=== PATIENT | female | born 2000 | race Caucasian/White ===

== ENCOUNTER 2021-05-27 17:34 | Emergency (ER) | payer OTHER, SELFPAY ==
[2021-05-27 18:20] VITALS: BP 123/84; PULSE 103; RESP 21; TEMP 37.1; O2SAT 99; BMI 15.2
--- NOTE | 2021-05-27 18:50 | HMH.EDUTC ---
[facility] [place] Clinical Impression: Acute bronchitis Qualifiers: Bronchitis organism: unspecified organism Qualified Code(s): J20.9 - Acute bronchitis, unspecified Disposition: Home, Self-Care Condition on Discharge: Good Instructions: Acute Bronchitis, DI for Acute Bronchitis Additional Instructions: Drink plenty of fluids. Take tylenol or ibuprofen for pain or fever. Take the medications as directed. Follow up with your regular doctor. GO TO THE ER FOR ANY WORSENING SYMPTOMS Quarantine until you know the results of your covid-19 test. If it is positive, the health department should call you and give you further instructions about your length of Quarantine and other thing. Prescriptions: Albuterol Sulfate [Albuterol Sulfate Hfa] 2 puffs IH Q6HP PRN 30 Days #1 hfa.aer.ad PRN Reason: Shortness Of Breath Transmission Status: Received by [facility]/pharmacy #[id number] Brompheniramine/Pseudoephed/Dm [Bromfed Dm Cough Syrup] 5 ml PO Q6HP PRN #240 syrup PRN Reason: Cough Transmission Status: Received by [facility]/pharmacy #[id number] predniSONE [Prednisone 20mg Tab] 20 mg PO BID 4 Days #8 tab Transmission Status: Received by [facility]/pharmacy #[id number] Azithromycin [Z-Gerardo 250mg Tab*] 250 mg PO UD DOSE PK #6 tab Transmission Status: Received by [facility]/pharmacy #[id number] Referrals: Conrad Chavez [Primary Care Provider] - Forms: Work/School Release Time of Disposition: 18:52 Medical Decision Making - Medical Records Medical records reviewed: No: I reviewed the patient's medical records. - Loki Inquiry Pt receiving controlled substance: No Vital Signs: 05/27/21 18:20 05/27/21 18:53 Temperature 98.7 F 98.7 F Temperature Source Oral Pulse Rate 103 H Pulse Rate [Left Brachial] 103 H Respiratory Rate 21 21 Blood Pressure 123/84 Blood Pressure [Left Arm] 123/84 Blood Pressure Mean [Left Arm] 97 Blood Pressure Source [Left Arm] Automatic Cuff Blood Pressure Position [Left Arm] Sitting 02 Sat by Pulse Oximetry 99 Oxygen Delivery Method Room Air Orders (Tests/Meds): ORDERS Category Date Time Status Covid-19 Nasal PCR ([facility]) Routine Lab 05/27/21 18:54 [place] [facility] [place] - General Stated complaint: cough runny nose congestion sob diarrhea Time Seen by Provider: 05/27/21 18:40 Mode of Arrival: Ambulatory Source of Information: Patient Limitations: No Limitations Description of Symptoms (Recalled from Triage Doc. by RN): PATIENT C/O RUNNY NOSE WITH GREEN DRAINAGE, COUGH, BODY ACHES, CONGESTION X 2 WEEKS HEENT Symptoms (Recalled from RN notes): Yes Resp Symptoms (Recalled from RN notes): Yes Skin Symptoms (Recalled from RN notes): No MS Symptoms (Recalled from RN notes): No Functional Status (Recalled from RN notes): WNL - History of Present Illness Provider Complaint: she c/o cough and congestion for the past 2 weeks. She denies fever. She usually gets bronchitis this time of the year. She denies any covid exposure. - Related Data Home Medications Medication Instructions Recorded Confirmed Buspirone HCl [Buspar 10mg 10 mg PO BID 05/27/21 05/27/21 tablet] Medroxyprogesterone Acetate 1 ml IM ONCE 05/27/21 05/27/21 Previous Rx's Medication Instructions Recorded Albuterol Sulfate [Albuterol 2 puffs IH Q6HP PRN 30 Days #1 05/27/21 Sulfate Hfa] hfa.aer.ad Azithromycin [Z-Gerardo 250mg Tab*] 250 mg PO UD DOSE PK #6 tab 05/27/21 Brompheniramine/Pseudoephed/Dm 5 ml PO Q6HP PRN #240 syrup 05/27/21 [Bromfed Dm Cough Syrup] predniSONE [Prednisone 20mg 20 mg PO BID 4 Days #8 tab 05/27/21 Tab] Allergies Allergy/AdvReac Type Severity Reaction Status Date / Time No Known Allergies Allergy Verified 05/27/21 18:22 - Worker's Comp Is this a Worker's Comp case?: No H History - Hepatitis A Screen Drug use history?: No High risk sexual behaviors?: No History of sexually transmitted infection?: No Currently employed?: No Childcare worker?: No Do you have indoor plum
[2021-05-27 18:53] VITALS: BP 123/84; PULSE 103; RESP 21; TEMP 37.1; O2SAT 99
== END 2021-05-27 18:58 | disposition home or self-care (01) ==
PROVIDERS: Emergency Provider Nurse Practitioner Family; PCP Pediatrics
DX: J20.9 Acute bronchitis, unspecified (principal); Z20.822 Contact with and (suspected) exposure to COVID-19; F17.210 Nicotine dependence, cigarettes, uncomplicated
CPT/HCPCS: 99202; G0463; U0003

== ENCOUNTER 2021-06-02 19:26 | Emergency (ER) | payer OTHER, SELFPAY ==
[2021-06-02 21:12] VITALS: BP 124/75; PULSE 75; RESP 18; TEMP 36.8; O2SAT 98; BMI 15.6
--- NOTE | 2021-06-02 21:17 | HMH.EDGENADL ---
ED Disposition Clinical Impression: Pleurisy Disposition: Left Against Medical Advice Condition on Discharge: Good Instructions: DI for Pleurisy Additional Instructions: please return or see pcp for follow up Referrals: Kenton Chavez MD [Primary Care Provider] - - Critical Care Critical Care Time: No Attestation: On 06/02/21, the high probability of a clinically significant, sudden or life threatening deterioration of the following system(s) required my full and direct attention, intervention and personal management. The time I documented below is in addition to time spent performing reported procedures but includes the following listed in this critical care notation. Medical Decision Making - Medical Records Medical records reviewed: Yes: I reviewed the patient's medical records. - Loki Inquiry Pt receiving controlled substance: No Vital Signs: 06/02/21 21:12 Temperature 98.2 F Temperature Source Oral Pulse Rate [Right Brachial] 75 Respiratory Rate 18 Blood Pressure [Right Arm] 124/75 Blood Pressure Mean [Right Arm] 91 Blood Pressure Source [Right Arm] Automatic Cuff Blood Pressure Position [Right Arm] Sitting 02 Sat by Pulse Oximetry 98 Oxygen Delivery Method Room Air - Lab Data Lab results reviewed: Yes: I reviewed the patient's lab results. Lab Results 06/02/21 21:28: WBC 14.4 H, RBC 5.10, Hgb 15.2, Hct 44.6, MCV 87.6, MCH 29.9, MCHC 34.1, RDW 13.2, Plt Count 499 H, MPV 7.5, Neut % (Auto) 63.7, Lymph % (Auto) 30.2, [place] % (Auto) 4.5, Eos % (Auto) 1.3, Baso % (Auto) 0.3, Neut # (Auto) 9.1 H, Lymph # (Auto) 4.3, [place] # (Auto) 0.6, Eos # (Auto) 0.2, Baso # (Auto) 0.1 06/02/21 21:28: Sodium 141, Potassium 4.2, Chloride 103, Carbon Dioxide 27, Anion Gap 15.2 H, BUN 11, Creatinine 0.60, Estimated Creat Clear 84, Estimated GFR 124, Est GFR ( Amer) 150, Glucose 93, Calcium 9.6, Total Bilirubin 0.4, AST 26, ALT 30, Alkaline Phosphatase 58, C-Reactive Protein 5.5 H, Total Protein 8.6 H, Albumin 4.9, Globulin 3.7 H, Albumin/Globulin Ratio 1.3 Result diagrams: 06/02/21 21:28 06/02/21 21:28 Orders (Tests/Meds): ORDERS Category Date Time Status CTA Chest [CT angio chest PE protocol] Stat Cat Scan 06/02/21 21:19 Ordered XR ribs RT min 3V w [id number] Stat Exams 06/02/21 21:16 Ordered C-Reactive Protein Stat Lab 06/02/21 21:28 Results Complete Blood Count Auto Diff Stat Lab 06/02/21 21:28 Results Comprehensive Metabolic Panel Stat Lab 06/02/21 21:28 Results ESR [Erythrocyte Sedimentation Rate] Stat Lab 06/02/21 21:28 Results HCG Qualitative, Serum Stat Lab 06/02/21 21:28 Received Lactic Acid Stat Lab 06/02/21 21:58 Received Procalcitonin Stat Lab 06/02/21 21:28 Results Rapid PCR Covid and Flu A/B Stat Lab 06/02/21 21:18 Ordered Blood Culture Stat Micro 06/02/21 21:58 Received Medical Decision Narrative: pleuritic pain after infection and will need ct - chest and covid-19 testing General Adult HPI - General Chief complaint: PAIN Stated complaint: cough, pain/stinging in ribs when coughing Time Seen by Provider: 06/02/21 21:15 Mode of Arrival: Family Vehicle Source of Information: Patient, Medical Record Limitations: No Limitations Description of Symptoms (Recalled from ER Triage Doc. by RN): right side rib pain following upper resp infection; pain with inspiration and coughing - History of Present Illness HPI narrative: pt with recent rt chest pain with pain with inspiration - no hemoptysis and no fever or rash and no trauma - was seen and treated with abx and steroids Onset (ago): day(s) Location: chest Severity: moderate Associated symptoms: cough - Related Data Home Medications Medication Instructions Recorded Confirmed Buspirone HCl [Buspar 10mg 10 mg PO BID 05/27/21 05/27/21 tablet] Medroxyprogesterone Acetate 1 ml IM ONCE 05/27/21 05/27/21 Previous Rx's Medication Instructions Recorded Albuterol Sulfate [Albuterol 2 puffs IH Q6HP IA
[2021-06-02 21:37] LABS: Basophils # 0.1 K/mm3 (0-0.2); Basophils % 0.3 % (0.1-2.0); Eosinophils # 0.2 K/mm3 (0.0-0.4); Eosinophils % 1.3 % (0.1-12.0); Hematocrit 44.6 % (37.0-47.0); Hemoglobin 15.2 g/dL (12.2-16.2); Lymphocytes # 4.3 K/mm3 (0.7-4.5); Lymphocytes % 30.2 % (10-50); Mean Corpuscular HGB Conc 34.1 g/dL (31.8-35.4); Mean Corpuscular Hemoglobin 29.9 pg (27.0-31.2); Mean Corpuscular Volume 87.6 fl (81-99); Mean Platelet Volume 7.5 fl (7.4-10.4); Monocytes # 0.6 K/mm3 (0.1-1.0); Monocytes % 4.5 % (1.7-9.3); Neutrophils # 9.1 K/mm3 (1.8-7.8); Neutrophils % 63.7 % (37.0-80.0); Platelet Count 499 K/mm3 (142-424); Red Cell Distribution Width 13.2 % (11.5-17.5); White Blood Count 14.4 K/mm3 (4.8-10.8)
[2021-06-02 21:49] LABS: Alanine Aminotransferase 30 U/L (12-78); Albumin Level 4.9 g/dl (3.5-5.0); Albumin/Globulin Ratio 1.3 (1.1-1.8); Alkaline Phosphatase 58 U/L (38-126); Anion Gap 15.2 mEq/L (5-15); Aspartate Amino Transferase 26 U/L (14-36); Bilirubin,Total 0.4 mg/dl (0.2-1.3); Blood Urea Nitrogen 11 mg/dl (7-17); Calcium 9.6 mg/dl (8.4-10.2); Carbon Dioxide 27 mmol/L (22.0-30.0); Chloride 103 mmol/L (98-107); Creatinine Clearance Estimated 84 mL/min (50-200); Estimated Glomerular Filt Rate 124 ml/min (>60); GFR (African American) 150 ML/MIN (>60); Globulin 3.7 g/dL (1.3-3.2); Glucose 93 mg/dl (74-100); Potassium 4.2 mmoL/L (3.5-5.1); Sodium 141 mmol/L (136-145); Total Protein,Serum 8.6 g/dl (6.3-8.2)
[2021-06-02 21:55] LABS: C-Reactive Protein 5.5 mg/L (0-4)
[2021-06-02 22:08] LABS: Procalcitonin 0.054 ng/mL (0.0-2.0)
[2021-06-02 22:18] LABS: Lactic Acid 0.8 mmol/L (0.7-2.1)
[2021-06-02 22:24] VITALS: BP 121/75; PULSE 78; RESP 18; TEMP 36.8; O2SAT 98
[2021-06-02 22:33] LABS: Erythrocyte Sedimentation Rate 21 mm/hr (0-20)
[2021-06-02 22:54] LABS: HCG Qualitative, Serum Negative (Negative)
== END 2021-06-02 22:25 | disposition left against medical advice (07) ==
PROVIDERS: Emergency Provider Emergency Medicine; PCP Family Medicine
DX: R09.1 Pleurisy (principal); F17.210 Nicotine dependence, cigarettes, uncomplicated
CPT/HCPCS: 80053; 83605; 84145; 84703; 85025; 85651; 86140; 87040; 99282

== ENCOUNTER 2022-03-14 08:36 | Emergency (ER) | payer OTHER, SELFPAY ==
[2022-03-14 08:37] VITALS: BP 107/68; PULSE 101; RESP 16; TEMP 37.1; O2SAT 99; BMI 16.4
--- NOTE | 2022-03-14 08:43 | PC.NURSE ---
LUCIA Ronquillo at BS
[2022-03-14 08:47] VITALS: BP 107/68; PULSE 136; O2SAT 97
--- NOTE | 2022-03-14 08:53 | HMH.EDGENADL ---
ED Disposition Clinical Impression: COVID-19 virus infection Disposition: Home, Self-Care Condition on Discharge: Good Instructions: DI for COVID-19 (Suspected or Confirmed ) Additional Instructions: Rest, drink plenty of fluids. Tylenol or Ibuprofen for fever and/or aches and pains. Monitor your symptoms. IF YOU HAVE AN EMERGENCY WARNING SIGN (INCLUDING TROUBLE BREATHING), SEEK EMERGENCY MEDICAL CARE IMMEDIATELY. COVID-19 Isolation: People with COVID-19 should isolate for 5 days. Then if they are asymptomatic (no symptoms) or their symptoms are resolving (without fever for 24 hours), follow that by 5 days of wearing a mask when around others to minimize the risk of infecting people you encounter. If you test positive for COVID-19 and never develop symptoms, day 0 is the day of your positive viral test (based on the date you were tested) and day 1 is the first full day after your positive test. If you develop symptoms after testing positive, your 5-day isolation period must start over. Day 0 is your first day of symptoms. Day 1 is the first full day after your symptoms developed. What to do: Stay in a separate room from other household members, if possible. Use a separate bathroom, if possible. Avoid contact with other members of the household and pets. Don?t share personal household items, like cups, towels, and utensils. Wear a mask when around other people if able. Referrals: Conrad Chavez [Primary Care Provider] - - Critical Care Critical Care Time: No Attestation: On 03/14/22, the high probability of a clinically significant, sudden or life threatening deterioration of the following system(s) required my full and direct attention, intervention and personal management. The time I documented below is in addition to time spent performing reported procedures but includes the following listed in this critical care notation. Medical Decision Making - Loki Inquiry Pt receiving controlled substance: No Vital Signs: 03/14/22 08:37 Temperature 98.7 F Temperature Source Oral Pulse Rate [Right Radial] 101 H Respiratory Rate 16 Blood Pressure [Right Arm] 107/68 L Blood Pressure Mean [Right Arm] 81 Blood Pressure Source [Right Arm] Automatic Cuff Blood Pressure Position [Right Arm] Sitting 02 Sat by Pulse Oximetry 99 Oxygen Delivery Method Room Air - Lab Data Lab Results 03/14/22 09:02: SARS-CoV-2 (PCR) Detected A, Influenza A Untype (PCR) Not detected, Influenza Type B (PCR) Not detected Medical Decision Narrative: Mother agreeable with COVID/flu testing. Does not want child tested unless she is positive. General Adult HPI - General Stated complaint: fever Time Seen by Provider: 03/14/22 08:53 - History of Present Illness HPI narrative: Patient and her child are both being seen. They both have been sick for 4 days with vomiting, diarrhea, and fever. Patient also has diffuse body aches. She was seen by her primary care provider yesterday and diagnosed with a viral gastroenteritis. Prescribed Zofran. No testing done. She says that she wants to know if there is anything she can take for the body aches. She says that she cannot take any pain medications except for Tylenol and ibuprofen due to weak stomach lining. Denies URI symptoms. Denies urinary symptoms. No recent travel or antibiotics. No blood in stool. No known exposure to any illnesses. She has not been vaccinated against COVID. - Related Data Home Medications Medication Instructions Recorded Confirmed Buspirone HCl [Buspar 10mg 10 mg PO BID 05/27/21 05/27/21 tablet] Medroxyprogesterone Acetate 1 ml IM ONCE 05/27/21 05/27/21 Previous Rx's Medication Instructions Recorded Albuterol Sulfate [Albuterol 2 puffs IH Q6HP PRN 30 Days #1 05/27/21 Sulfate Hfa] hfa.aer.ad Azithromycin [Z-Gerardo 250mg Tab*] 250 mg PO UD DOSE PK #6 tab 05/27/21 Brompheniramine/Pseudoephed/Dm 5 ml PO Q6HP PRN #240 syrup
--- NOTE | 2022-03-14 08:54 | PC.NURSE ---
ED MD at
[2022-03-14 09:09] LABS: Influenza A, PCR Not Detected (NotDetected); Influenza B, PCR Not Detected (NotDetected)
[2022-03-14 09:59] LABS: Coronavirus 19, PCR Detected (NotDetected)
--- NOTE | 2022-03-14 10:04 | PC.NURSE ---
ED MD at speaking with patient
--- NOTE | 2022-03-14 10:26 | PC.NURSE ---
Vera, RN at discussing discharge instructions
[2022-03-14 10:30] VITALS: BP 107/68; PULSE 136; RESP 14; TEMP 37.1; O2SAT 97
== END 2022-03-14 10:35 | disposition home or self-care (01) ==
PROVIDERS: Emergency Provider Emergency Medicine; PCP Pediatrics
DX: U07.1 COVID-19 (principal); F17.210 Nicotine dependence, cigarettes, uncomplicated
CPT/HCPCS: 99282; C9803; U0003; U0005

== ENCOUNTER 2023-08-26 11:20 | Emergency (ER) | payer OTHER, SELFPAY ==
[2023-08-26 11:23] VITALS: BP 122/75; PULSE 105; RESP 18; TEMP 36.7; O2SAT 100; BMI 15.8
--- NOTE | 2023-08-26 12:05 | HMH.EDGENADL ---
Discharge Plan Disposition Patient Disposition: Home, Self-Care Chief Complaint: Abdominal Pain Prescriptions Prescriptions: No Action albuterol sulfate 8.5 GM HFA aerosol inhaler 2 puffs IH Q6HP PRN (Reason: Shortness Of Breath) 30 Days Qty: 1 5RF Referrals Follow up/Referrals: Conrad Chavez [Primary Care Provider] - See instructions Activity Restrictions/Add. Instructions Additional Instructions/Restrictions: At this time it was felt you are safe to be discharged home. If new or worsening symptoms please do not hesitate to return the emergency department. You have follow-up with Dr. Tipton on 16 at 3:15 PM, please attend this appointment. Clinical Impressions Clinical Impression: Abdominal pain, Instructions Patient Instructions: DI for Acute Abdominal Pain Discharge ED Provider: Matthew Guillen General Adult HPI General Chief complaint: Abdominal Pain Stated complaint: stomach pain, 9 weeks Time Seen by Provider: 08/26/23 11:40 Mode of Arrival: Family Vehicle Source of Information: Patient Limitations: No Limitations Description of Symptoms (Recalled from ER Triage Doc. by RN): Pt is apporx 9 wk and presents with c/o of RLQ ABD cramping . Denies any blood or conerning vaginal d/c. Denies fever, chills, or n/v/d. She is . States she typically have pre-eclampsia with her pregnancies and she is a -Rh factor blood. She follows Inna HARRISON with Dr. Sanon's office. She has not had an u/s yet. History of Present Illness HPI narrative: Patient is a G3, P1 EGA 9 weeks who presents to the emergency department for evaluation of right lower quadrant abdominal pain and cramping. Onset was acute. She has associated vomiting over the last few days. No dysuria, no vaginal discharge, no vaginal bleeding. has not been identified on ultrasound previously. Related Data Previous Rx's Medication Instructions Recorded albuterol sulfate 90 mcg/actuation 2 puffs IH Q6HP PRN Shortness Of 05/27/21 aerosol inhaler Breath 30 days ##1 Allergies Allergy/AdvReac Type Severity Reaction Status Date / Time No Known Allergies Allergy Verified 05/27/21 18:22 [facility] Disclaimer: The information contained in this section may have been updated after the patient was seen, as this information can be updated by other users. Social History Smoking Status: Current every day smoker tobacco type: cigarettes packs per day: 1 second hand exposure: No alcohol intake: never current occupational status: other Travel in the last 8 weeks: None ROS Obtained: Yes Systems reviewed as appropriate & no additional complaints except as documented Physical Exam General General appearance: alert and in no apparent distress Head Head exam: atraumatic and normocephalic Eye Eye exam: Present PERRL and EOMI ENT ENT exam: Present mucous membranes moist Neck Neck exam: Present normal inspection Chest Chest inspection: Present normal inspection and symmetric chest wall rise Respiratory Respiratory exam: Present normal lung sounds bilaterally; Absent respiratory distress Cardiovascular Cardiovascular exam: Present regular rate and normal rhythm Abdominal Exam Abdominal exam: Present soft; Absent tenderness Extremities Exam Extremities exam: Present normal inspection Neurological Exam Neurological exam: Present alert Psychiatric Psychiatric exam: Present normal affect Skin Skin exam: Present warm and dry Medical Decision Making Loki Inquiry Pt receiving controlled substance: No Vital Signs: 08/26/23 11:23 Temperature 98.0 F Temperature Source Oral Pulse Rate [Right] 105 H Respiratory Rate 18 Blood Pressure [Right Arm] 122/75 Blood Pressure Mean [Right Arm] 90 Blood Pressure Source [Right Arm] Automatic Cuff 02 Sat by Pulse Oximetry 100 Oxygen Delivery Method Room Air Lab Data Lab Results 08/26/23 11:32: Urine Color Yellow, Urine Appearance C
[2023-08-26 12:10] LABS: Microscopic, Urine URINE MICROSCOPIC (MICROSCOPIC)
[2023-08-26 12:12] LABS: Basophils % 0.2 % (0.1-2.0); Eosinophils # 0.1 K/mm3 (0.0-0.4); Eosinophils % 1.1 % (0.1-12.0); Hematocrit 41.7 % (37.0-47.0); Hemoglobin 14.7 g/dL (12.2-16.2); Lymphocytes # 2.2 K/mm3 (0.7-4.5); Lymphocytes % 21.5 % (10-50); Mean Corpuscular HGB Conc 35.2 g/dL (31.8-35.4); Mean Corpuscular Hemoglobin 32.9 pg (27.0-31.2); Mean Corpuscular Volume 93.4 fl (81-99); Mean Platelet Volume 8.4 fl (7.4-10.4); Monocytes # 0.6 K/mm3 (0.1-1.0); Monocytes % 5.6 % (1.7-9.3); Neutrophils # 7.4 K/mm3 (1.8-7.8); Neutrophils % 71.5 % (37.0-80.0); Platelet Count 314 K/mm3 (142-424); Red Blood Count 4.46 M/mm3 (4.20-5.40); Red Cell Distribution Width 12.8 % (11.5-17.5); White Blood Count 10.3 K/mm3 (4.8-10.8)
[2023-08-26 12:17] LABS: Appearance,Urine CLEAR (Clear); Bilirubin,Urine Negative (Negative); Blood, Urine Negative (Negative); Color,Urine YELLOW (Yellow); Glucose,Urine (UA) Negative (Negative); Ketones,Urine Negative (Negative); Leukocyte Esterase,Urine Negative (Negative); Nitrate,Urine Negative (Negative); Protein,Urine Negative (Negative); Urobilinogen,Urine 0.2 EU/dl (0.2)
[2023-08-26 12:18] LABS: Alanine Aminotransferase 29 U/L (12-78); Albumin/Globulin Ratio 1.5 (1.1-1.8); Alkaline Phosphatase 40 U/L (38-126); Anion Gap 15.6 mEq/L (5-15); Aspartate Amino Transferase 34 U/L (14-36); Bilirubin,Total 0.4 mg/dl (0.2-1.3); Blood Urea Nitrogen 6 mg/dl (7-17); Calcium 9.5 mg/dl (8.4-10.2); Carbon Dioxide 24 mmol/L (22.0-30.0); Chloride 103 mmol/L (98-107); Creatinine Clearance Estimated 83 mL/min (50-200); Estimated Glomerular Filt Rate 122 ml/min (>60); GFR (African American) 147 ML/MIN (>60); Globulin 3.3 g/dL (1.3-3.2); Glucose 86 mg/dl (74-100); Magnesium 2.1 mg/dl (1.6-2.3); Potassium 3.6 mmoL/L (3.5-5.1); Sodium 139 mmol/L (136-145); Total Protein,Serum 8.3 g/dl (6.3-8.2)
[2023-08-26 12:23] LABS: C-Reactive Protein 0.5 mg/L (0-4)
[2023-08-26 13:10] LABS: HCG,Quantitative 19928 mIU/ml (0-5.42)
--- NOTE | 2023-08-26 13:12 | US_ITS ---
PROCEDURE INFORMATION: Exam: US , Transvaginal and US Duplex Artery and Vein, Ovaries, Complete Exam date and time: 08/26/2023 1:20 PM Age: 23 years old Clinical indication: Other: Rlq pain; Gestational age or lmp: 06/19/2023; ; Additional info: Preg location LABS AND CLINICAL REPORTS: Last menstrual period start date: 06/19/2023 Gestational age (Established): 9 w 5 d Estimated due date (Established): 03/25/2024 TECHNIQUE: Imaging protocol: Real-time transvaginal obstetrical ultrasound of the maternal pelvis and a first trimester with image documentation. Transvaginal imaging was used for better evaluation of the fetus, adnexa, and/or cervix. Real-time duplex ultrasound scan of the arterial and venous flow of the ovaries with B-mode, color Doppler flow and spectral waveform analysis, Complete Duplex. Duplex exam was performed to evaluate for torsion and other vascular conditions. Total images: 437 COMPARISON: No relevant prior studies available. FINDINGS: GESTATION: Gestation: Yolk sac measures 4.1 mm. Single intrauterine gestation. heart rate: No heart rate detected on the current study. Short-term follow-up is recommended. Placenta: Unremarkable. No subchorionic bleed. Amniotic fluid: Amniotic fluid is normal for gestational age. BIOMETRY: Gestational age (AUA): 6 w 0 d Estimated due date (AUA): 04/20/2024 Mean sac diameter: 1.32 cm. Morse-Rump length (CRL): 4 mm. EGA (CRL) is 6 w 1 d MATERNAL: Right ovary/adnexa: Right ovary measures 3.32 cm x 2.92 cm x 2.22 cm. Right ovarian volume is 11.27 mL. Blood flow is demonstrated to the right ovary. Left ovary/adnexa: Left ovary measures 2.42 cm x 2.1 cm x 1.4 cm. Left ovarian volume is 3.73 mL. Blood flow is demonstrated to the left ovary. Intraperitoneal space: No free fluid present. IMPRESSION: 1. Single intrauterine gestation. 2. Average gestational age (AUA) 6 weeks 0 days. 3. No heart rate detected on the current study. Short-term follow-up is recommended. 4. No evidence of ovarian torsion. 5. No free fluid present.
--- NOTE | 2023-08-26 13:13 | PC.NURSE ---
Called for Transvaginal US
--- NOTE | 2023-08-26 13:23 | PC.NURSE ---
pt taken to u/s via wheelchair
--- NOTE | 2023-08-26 13:54 | PC.NURSE ---
Dr. Guillen s/w Dr. Henderson. State to have pt follow up in office next week Wed-Wed. per office staff, appt made with Dr. Henderson on for 09/02/23 at 3:15pm. pt & MD advised of this
[2023-08-26 14:48] VITALS: BP 122/75; PULSE 105; RESP 16; TEMP 36.7
== END 2023-08-26 14:50 | disposition home or self-care (01) ==
PROVIDERS: Emergency Provider Emergency Medicine; PCP Pediatrics
DX: O26.891 Other specified pregnancy related conditions, first trimester (principal); R10.31 Right lower quadrant pain; R11.2 Nausea with vomiting, unspecified; Z3A.01 Less than 8 weeks gestation of pregnancy
CPT/HCPCS: 76817; 80053; 81001; 83735; 84702; 85025; 86140; 96374; 99284; J0131

== ENCOUNTER → 2023-09-02 23:16 | Outpatient (CLI) | payer OTHER, SELFPAY | PROVIDERS: PCP Pediatrics; Visit Provider Obstetrics & Gynecology | DX: Z34.91 Encounter for supervision of normal pregnancy, unspecified, first trimester (principal); Z3A.01 Less than 8 weeks gestation of pregnancy | CPT/HCPCS: 87086 ==

== ENCOUNTER → 2023-09-17 10:14 | Outpatient (CLI) | payer OTHER, SELFPAY ==
[2023-09-17 10:47] LABS: Basophils % 0.2 % (0.1-2.0); Eosinophils # 0.2 K/mm3 (0.0-0.4); Eosinophils % 1.4 % (0.1-12.0); Hematocrit 35.8 % (37.0-47.0); Hemoglobin 12.5 g/dL (12.2-16.2); Lymphocytes # 2.3 K/mm3 (0.7-4.5); Lymphocytes % 20.1 % (10-50); Mean Corpuscular HGB Conc 34.9 g/dL (31.8-35.4); Mean Corpuscular Hemoglobin 32.4 pg (27.0-31.2); Mean Corpuscular Volume 92.7 fl (81-99); Mean Platelet Volume 7.9 fl (7.4-10.4); Monocytes # 0.5 K/mm3 (0.1-1.0); Monocytes % 4.4 % (1.7-9.3); Neutrophils # 8.3 K/mm3 (1.8-7.8); Neutrophils % 73.9 % (37.0-80.0); Platelet Count 274 K/mm3 (142-424); Red Blood Count 3.86 M/mm3 (4.20-5.40); Red Cell Distribution Width 12.9 % (11.5-17.5); White Blood Count 11.2 K/mm3 (4.8-10.8)
[2023-09-18 10:11] LABS: Rapid Plasma Reagin Ab Titer Non Reactive titer (NonRea<1:1)
[2023-09-20 21:46] LABS: HIV Screen 4th Generation wRfx Non Reactive; Hepatitis B Surface Antigen Negative; Hepatitis C Antibody Non Reactive
[2023-09-20 21:47] LABS: Rubella Antibodies, IgG 1.72
== END ==
PROVIDERS: PCP Pediatrics; Visit Provider Obstetrics & Gynecology
DX: Z34.91 Encounter for supervision of normal pregnancy, unspecified, first trimester (principal); Z3A.09 9 weeks gestation of pregnancy
CPT/HCPCS: 36415; 85025; 86593; 86703; 86762; 86850; 87340; 87380; G0432

== ENCOUNTER 2023-11-29 08:35 | Emergency (ER) | payer OTHER, SELFPAY ==
[2023-11-29 08:36] VITALS: BP 123/78; PULSE 120; RESP 18; TEMP 36.6; O2SAT 99; BMI 17.6
[2023-11-29 09:33] LABS: Microscopic, Urine URINE MICROSCOPIC (MICROSCOPIC)
[2023-11-29 09:35] VITALS: BP 104/70; PULSE 104; RESP 18; O2SAT 98
[2023-11-29] MEDS: ACETAMINOPHEN 500MG TAB 1000 MG PO (09:40)
[2023-11-29] MEDS: ONDANSETRON 4MG ODT 4 MG SL (09:40)
[2023-11-29] MEDS: LACTATED RINGERS 1000ML 1,000 ML 999 ML IV (09:40)
[2023-11-29] MEDS: CYCLOBENZAPRINE 10MG TABLET 5 MG PO (09:40)
[2023-11-29 09:41] LABS: Appearance,Urine CLEAR (Clear); Bilirubin,Urine Negative (Negative); Blood, Urine TRACE-I (Negative); Color,Urine YELLOW (Yellow); Glucose,Urine (UA) Negative (Negative); Ketones,Urine Negative (Negative); Leukocyte Esterase,Urine Negative (Negative); Nitrate,Urine Negative (Negative); Protein,Urine Negative (Negative); Urobilinogen,Urine 0.2 EU/dl (0.2)
[2023-11-29 09:43] LABS: Basophils % 0.1 % (0.1-2.0); Eosinophils # 0.1 K/mm3 (0.0-0.4); Eosinophils % 1.6 % (0.1-12.0); Hematocrit 30.6 % (37.0-47.0); Hemoglobin 10.9 g/dL (12.2-16.2); Lymphocytes # 0.6 K/mm3 (0.7-4.5); Lymphocytes % 6.5 % (10-50); Mean Corpuscular HGB Conc 35.5 g/dL (31.8-35.4); Mean Corpuscular Hemoglobin 32.8 pg (27.0-31.2); Mean Corpuscular Volume 92.4 fl (81-99); Mean Platelet Volume 8.8 fl (7.4-10.4); Monocytes # 0.5 K/mm3 (0.1-1.0); Monocytes % 6.2 % (1.7-9.3); Neutrophils # 7.4 K/mm3 (1.8-7.8); Neutrophils % 85.6 % (37.0-80.0); Platelet Count 235 K/mm3 (142-424); Red Blood Count 3.32 M/mm3 (4.20-5.40); Red Cell Distribution Width 13.9 % (11.5-17.5); White Blood Count 8.7 K/mm3 (4.8-10.8)
[2023-11-29 09:45] LABS: MANUAL DIFFERENTIAL MANUAL DIFFERENTIAL (MANUAL DIFF)
[2023-11-29 10:14] LABS: Chloride 105 mmol/L (98-107); Potassium 3.5 mmoL/L (3.5-5.1); Sodium 132 mmol/L (136-145)
--- NOTE | 2023-11-29 10:14 | HMH.EDGENADL ---
Discharge Plan Disposition Patient Disposition: Home, Self-Care Condition: Good Prescriptions Prescriptions: New cyclobenzaprine 10 mg tablet 10 mg PO BID PRN (Reason: muscle spasm) 3 Days Qty: 6 0RF nitrofurantoin macrocrystal 100 mg capsule 100 mg PO BID 5 Days Qty: 10 0RF Rx Instructions: must administer with a meal/food No Action Classic 28 mg iron- 800 mcg tablet 1 tab PO DAILY promethazine 12.5 mg tablet 12.5 mg PO TID PRN (Reason: nausea and vomiting) Qty: 30 1RF Referrals Follow up/Referrals: Kenton Chavez MD [Primary Care Provider] - See instructions Activity Restrictions/Add. Instructions Additional Instructions/Restrictions: You have been evaluated in the ED for your complaints. You may follow-up with your PCP in the next 3 to 5 days. Please return to ED for any new or worsening symptoms. Please keep your follow-up appointments as discussed. I have written for Flexeril to assist with your pain. I have also written for nitrofurantoin to treat your asymptomatic bacteriuria. Clinical Impressions Clinical Impression: Right flank pain, Muscle spasm, Asymptomatic bacteriuria during Discharge ED Provider: Last [facility] Adult HPI General Chief complaint: Back Pain/Injury Stated complaint: 20 weeks on 12/02 back cramps Time Seen by Provider: 11/29/23 09:12 Mode of Arrival: Ambulatory Source of Information: Patient Limitations: No Limitations Description of Symptoms (Recalled from ER Triage Doc. by RN): Patient is 20 weeks and states she has been having right flank pain that started 3 or 4 days ago reports history of sciatic nerve pain but reports this feels different. States she had used a massager last night and felt a sharp pain wrap around into stomach that made her vomit. Reports baby is moving well. History of Present Illness HPI narrative: 23-year-old female with past medical history significant for sciatica, reportedly 20 weeks gestation, presents today for evaluation concerning right lower back cramping pain over the past 3 days. She also reports episodes of N/V after applying a massager to the area home last night. Denies having any fevers, chills, chest pain, shortness of breath, dysuria, hematuria or any other associated symptoms at this time. Denies any traumatic injuries. No further complaints. Related Data Home Medications Medication Instructions Recorded Confirmed vits no.126-ferrous fum 1 tab PO DAILY 09/02/23 11/11/23 28 mg iron-folic acid 800 mcg tablet (Classic ) Previous Rx's Medication Instructions Recorded promethazine 12.5 mg tablet 12.5 mg PO TID PRN nausea and 09/02/23 vomiting #30 tabs cyclobenzaprine 10 mg tablet 10 mg PO BID PRN muscle spasm 3 11/29/23 days #6 tabs nitrofurantoin macrocrystal 100 mg 100 mg PO BID 5 days #10 caps 11/29/23 capsule Allergies Allergy/AdvReac Type Severity Reaction Status Date / Time No Known Allergies Allergy Verified 11/11/23 11:12 [facility] [place] Disclaimer: The information contained in this section may have been updated after the patient was seen, as this information can be updated by other users. Medical History History of pre-eclampsia in prior , currently Marijuana use during No significant past medical history Rh negative state in antepartum period Vaping nicotine dependence, tobacco product Surgical History No significant past surgical history Family History Father Hyperglycemia Social History Smoking Status: Current every day smoker tobacco type: e-cigarettes second hand exposure: No alcohol intake: never current occupational status: other Travel in the last 8 weeks: None ROS Obtained: Yes All systems reviewed & no additional complaints except as documented Physical Exam General General appearance: alert and in no apparent distress Head Head exam: atraumatic and normocephalic Eye Eye exam: Present normal appearance, PERRL and EOMI ENT ENT exam: Present normal oropharynx and mucous membranes moist Neck Neck exam: Present full ROM; Absent meningismus Respiratory Respiratory exam: Absent respiratory distress, wheezes, stridor or accessory muscle use Cardiovascular Cardiovascular exam: Present normal rhythm Abdominal Exam Abdominal exam: Present soft and other (Gravid abdomen without tenderness to palpation.); Absent distention, tenderness, guarding, rebound or rigidity Back Exam Back exam: Present tenderness (Tenderness to palpation along the right flank.) Neurological Exam Neurological exam: Present alert, oriented X3 and CN II-XII intact; Absent motor sensory deficit Psychiatric Psychiatric exam: Present normal affect and normal mood Skin Skin exam: Present warm and dry Medical Decision Making Medical Records Medical records reviewed: Yes I reviewed the patient's medical records. Loki Inquiry Pt receiving controlled substance: No Loki was queried for this patient: No Vital Signs: 11/29/23 08:36 11/29/23 09:35 Temperature 97.8 F Temperature Source Oral Pulse Rate 104 H Pulse Rate [Right] 120 H Respiratory Rate 18 18 Blood Pressure 104/70 L Blood Pressure [Right Arm] 123/78 Blood Pressure Mean 79 Blood Pressure Mean [Right Arm] 93 Blood Pressure Source [Right Arm] Automatic Cuff 02 Sat by Pulse Oximetry 99 98 Oxygen Delivery Method Room Air Lab Data Lab Results 11/29/23 08:40: Urine Color Yellow, Urine Appearance Clear, Urine pH 7.0, Ur Specific [place] 1.010, Urine Protein Negative, Urine Glucose (UA) Negative, Urine Ketones Negative, Urine Blood Trace-i, Urine Nitrate Negative, Urine Bilirubin Negative, Urine Urobilinogen 0.2, Ur Leukocyte Esterase Negative, Urine WBC 5-10, Ur Squamous Epith Cells 5-10, Urine Bacteria Trace 11/29/23 09:35: WBC 8.7, RBC 3.32 L, Hgb 10.9 L, Hct 30.6 L, MCV 92.4, MCH 32.8 H, MCHC 35.5 H, RDW 13.9, Plt Count 235, MPV 8.8, Neut % (Auto) 85.6 H, Lymph % (Auto) 6.5 L, [place] % (Auto) 6.2, Eos % (Auto) 1.6, Baso % (Auto) 0.1, Neut # (Auto) 7.4, Lymph # (Auto) 0.6 L, [place] # (Auto) 0.5, Eos # (Auto) 0.1, Baso # (Auto) 0.0, Sodium 132 L, Potassium 3.5, Chloride 105, Carbon Dioxide 23, Anion Gap 7.5, BUN 3 L, Creatinine 0.40 L, Estimated Creat Clear 139, Estimated GFR 194, Est GFR ( Amer) 235, Glucose 92, Calcium 8.5, Total Bilirubin 0.4, AST 30, ALT 28, Alkaline Phosphatase 65, Total Protein 6.5, Albumin 3.4 L, Globulin 3.1, Albumin/Globulin Ratio 1.1 11/29/23 09:35 11/29/23 09:35 Orders (Tests/Meds): ED MEDICATIONS Discontinued Medications Generic Name Dose Route Start Last Admin Trade Name Delta PRN Reason Stop Dose Admin Acetaminophen 1,000 mg 11/29/23 09:26 11/29/23 09:40 Acetaminophen 500mg Tab PO 11/29/23 09:27 1,000 mg ONCE ONE Administration Cyclobenzaprine HCl 5 mg 11/29/23 09:26 11/29/23 09:40 Cyclobenzaprine 10mg Tablet PO 11/29/23 09:27 5 mg ONCE ONE Administration Lactated Ringer's 1,000 mls @ 999 mls/hr 11/29/23 09:29 11/29/23 09:40 Lactated Ringer's 1000 Ml Bag IV 11/29/23 10:29 999 mls/hr .Q1H1M ONE Administration Ondansetron HCl 4 mg 11/29/23 09:29 11/29/23 09:40 Ondansetron 4mg Odt SL 11/29/23 09:30 4 mg ONCE ONE Administration ORDERS Category Date Time Status CBC w/Auto Diff [Complete Blood Count Auto Diff] Stat Lab 11/29/23 09:35 Results CMP [Comprehensive Metabolic Panel] Stat Lab 11/29/23 09:35 Results HCG,Quantitative Stat Lab 11/29/23 09:35 Results Urinalysis and Microscopic Stat Lab 11/29/23 08:40 Completed Medical Decision Narrative: 23-year-old female with past medical history significant for sciatica, reportedly 20 weeks gestation, presents today for evaluation concerning right lower back cramping pain over the past 3 days. She also reports episodes of N/V after applying a massager to the area home last night. On assessment, the patient was medically stable and in no acute distress. Afebrile. Physical exam was remarkable for a gravid abdomen without tenderness to palpation. She did have right CVA tenderness. Otherwise exam findings unremarkable. Differential diagnoses include but not limited to muscle spasm, pyelonephritis, UTI, , musculoskeletal pain, and others. Patient's lab work today is remarkable for a stable anemia with a hemoglobin of 10.9. Hematocrit of 30.6. Sodium of 132. Urinalysis with negative nitrates, negative leukocyte esterase, 5-10 WBCs, trace bacteria. Creatinine was not elevated. On reassessment the patient remains medically stable and in no acute distress. She stated that her symptoms were very much improved at this time. She remained afebrile. I discussed ED workup results and current plan to discharge home with Flexeril for musculoskeletal pain as well as Macrobid to treat her asymptomatic bacteriuria. She verbalized understanding and agreement with plan. Provided with return to ED precautions and instructions concerning follow-up with her [employer]. Subsequently discharged home hemodynamically stable in no acute distress. Critical Care Critical Care Time Critical Care Time: No
[2023-11-29 10:17] LABS: Alanine Aminotransferase 28 U/L (12-78); Albumin Level 3.4 g/dl (3.5-5.0); Albumin/Globulin Ratio 1.1 (1.1-1.8); Alkaline Phosphatase 65 U/L (38-126); Anion Gap 7.5 mEq/L (5-15); Aspartate Amino Transferase 30 U/L (14-36); Bilirubin,Total 0.4 mg/dl (0.2-1.3); Blood Urea Nitrogen 3 mg/dl (7-17); Calcium 8.5 mg/dl (8.4-10.2); Carbon Dioxide 23 mmol/L (22.0-30.0); Creatinine Clearance Estimated 139 mL/min (50-200); Estimated Glomerular Filt Rate 194 ml/min (>60); GFR (African American) 235 ML/MIN (>60); Globulin 3.1 g/dL (1.3-3.2); Glucose 92 mg/dl (74-100); Total Protein,Serum 6.5 g/dl (6.3-8.2)
[2023-11-29 11:11] LABS: Bacteria,Urine Trace /lpf
[2023-11-29 11:35] VITALS: BP 95/63; PULSE 102; RESP 18; TEMP 36.6; O2SAT 100
[2023-11-29 14:52] LABS: Eosinophils % 3 % (0-3); Lymphocytes % 4 % (10-50); Monocytes % 8 % (2-9); Neutrophils % 84 % (42-76); Platelet Estimate Normal; Total Cells Counted 100
[2023-11-29 14:53] LABS: RBC Morphology Normal
[2023-11-29 14:57] LABS: HCG,Quantitative 37022 mIU/ml (0-5.42)
== END 2023-11-29 11:36 | disposition home or self-care (01) ==
PROVIDERS: Emergency Provider Emergency Medicine; PCP Family Medicine
DX: O99.891 Other specified diseases and conditions complicating pregnancy (principal); R82.71 Bacteriuria; R10.31 Right lower quadrant pain; M54.59 Other low back pain; M62.838 Other muscle spasm; E87.1 Hypo-osmolality and hyponatremia; O99.332 Smoking (tobacco) complicating pregnancy, second trimester; F17.290 Nicotine dependence, other tobacco product, uncomplicated; Z3A.20 20 weeks gestation of pregnancy
CPT/HCPCS: 80053; 81001; 84702; 85007; 85025; 96360; 99284

== ENCOUNTER 2023-12-02 13:17 | Outpatient (CLI) | payer OTHER, SELFPAY ==
--- NOTE | 2023-12-02 13:20 | US_ITS ---
PROCEDURE: US OB /MATERNAL DETAIL CLINICAL INDICATION: 20 week anatomy scan COMPARISON: US US OB TRANSVAGINAL from 08/26/2023 FINDINGS: Transabdominal sonographic images of the pelvis were obtained. From her established due date she is 20 weeks 0 days. Single viable intrauterine gestation. Cephalic position. Placenta: Anteriorplacenta grade 1. There is an average amount of fluid. The cervix appears satisfactory. Closed and measuring 2.9 cm in length. Complete survey performed and was unremarkable on the submitted images as in PACS. No discrete anomalies identified on survey imaging by technologist. Active fetus. Three-vessel cord with satisfactory umbilical cord insertion. 4- chamber heart noted. Situs, aortic arch, LVOT, RVOT, three-vessel view appear normal. Survey of brain & ventricles Unremarkable. Cerebellum, thalamus, choroid plexus, cisterna magna appear normal. Face and neck survey unremarkable. Profile, nasion, lips and nose appeared normal. Diaphragm and chest views unremarkable. Abdomen: Both kidneys noted and unremarkable. Stomach and bladder noted and satisfactory. Spine: Survey of the spine satisfactory with no anomalies identified nor imaged. Cervical, thoracic, lower spine appear normal. Both arms and legs noted. Amniotic Fluid: Adequate. Measurements: Average ultrasound age 19weeks 5days. Estimated due date by ultrasound age 0704/22/2024. Estimated weight 311g BPD = 19weeks 3days HC = 19weeks 3days AC = 20weeks 0 days FL = 19weeks 6days Growth Percentile= 32 Heart Rate = 140bpm Cerebellum = 20weeks Humerus = 19weeks 4days HC/AC is 1.15 FL/BPD is 0.71 FL/AC is 0.22 IMPRESSION: 1. Viable fetus in the cephalic presentation with an anterior placenta grade 1. 2. The fluid is within normal limits. 3. Anatomical scan appears normal. 4. biometry is consistent with the dates. Dictated by: Vikash Vazquez MD 12/02/2023 16:33 Vikash Vazquez MD in [place] 12/02/2023 16:33
== END 2023-12-02 23:59 ==
LOC: RAD 13:18
PROVIDERS: PCP Family Medicine; Visit Provider Obstetrics & Gynecology
DX: O09.292 Supervision of pregnancy with other poor reproductive or obstetric history, second trimester (principal); O99.322 Drug use complicating pregnancy, second trimester; O99.891 Other specified diseases and conditions complicating pregnancy; F12.90 Cannabis use, unspecified, uncomplicated; F17.290 Nicotine dependence, other tobacco product, uncomplicated; R82.71 Bacteriuria; Z3A.20 20 weeks gestation of pregnancy
CPT/HCPCS: 76811

== ENCOUNTER 2024-01-27 08:32 | Outpatient (CLI) | payer OTHER, SELFPAY ==
[2024-01-27 09:19] LABS: Basophils # 0.1 K/mm3 (0-0.2); Basophils % 0.5 % (0.1-2.0); Eosinophils # 0.5 K/mm3 (0.0-0.4); Eosinophils % 3.6 % (0.1-12.0); Hematocrit 33.6 % (37.0-47.0); Hemoglobin 11.2 g/dL (12.2-16.2); Lymphocytes # 2.9 K/mm3 (0.7-4.5); Lymphocytes % 22.6 % (10-50); Mean Corpuscular HGB Conc 33.1 g/dL (31.8-35.4); Mean Corpuscular Hemoglobin 31.5 pg (27.0-31.2); Mean Corpuscular Volume 95.1 fl (81-99); Mean Platelet Volume 8.3 fl (7.4-10.4); Monocytes # 0.7 K/mm3 (0.1-1.0); Monocytes % 5.7 % (1.7-9.3); Neutrophils # 8.7 K/mm3 (1.8-7.8); Neutrophils % 67.7 % (37.0-80.0); Platelet Count 327 K/mm3 (142-424); Red Blood Count 3.54 M/mm3 (4.20-5.40); Red Cell Distribution Width 13.6 % (11.5-17.5); White Blood Count 12.9 K/mm3 (4.8-10.8)
[2024-01-27 09:53] LABS: Glucose,Fasting 83 mg/dl (74-100)
[2024-01-27] MEDS: RHO(D) IMMUNE GLOBULIN 1,500 UNIT SYRINGE 1500 UNIT IM (12:15)
[2024-01-27 12:17] VITALS: BP 122/74; PULSE 72; O2SAT 98
[2024-01-27 15:12] LABS: Glucose 1 Hour 115 mg/dL (74-100)
== END 2024-01-27 12:20 | disposition home or self-care (01) ==
LOC: LAB 08:35 → INF 12:13
PROVIDERS: Visit Provider Obstetrics & Gynecology
DX: O26.893 Other specified pregnancy related conditions, third trimester (principal); O09.293 Supervision of pregnancy with other poor reproductive or obstetric history, third trimester; Z67.91 Unspecified blood type, Rh negative; Z3A.28 28 weeks gestation of pregnancy
CPT/HCPCS: 36415; 82951; 85025; 96372; J2790

== ENCOUNTER 2024-02-29 12:54 | Outpatient (CLI) | payer OTHER, SELFPAY ==
--- NOTE | 2024-02-29 13:08 | US_ITS ---
PROCEDURE: US OB BIOPHYSICAL PROFILE CLINICAL INDICATION: SGA COMPARISON: US US OB /MATERNAL DETAIL from 12/02/2023 FINDINGS: Transabdominal sonographic images of the uterus were obtained. From her established due date she is 32weeks 5days. The following parameters are obtained: Viable Fetus in the cephalic presentation with and anterior placenta grade 2. Average ultrasound age is 32weeks 4days Estimated weight 1,833g Cervix measures 3.0 cm. Measurements: heart Rate = 111bpm BPD = 33weeks 4days, 66 percentile HC = 33weeks 6days, 41 percentile AC = 31weeks 3days, 15 percentile FL = 31weeks 2days, 9 percentile HC/AC is 1.11 FL/BPD is 0.72 FL/AC is 0.22 16 percentile Amniotic fluid index: 11.28cm, MVP 3.23 cm. Qualitative AFV:2 Breathing movements: 2 Gross Body Movements: 2 Tone: 2 Biophysical profile score: 8 Only one kidney seen clearly. The 2nd kidney is not seen or possibly absent. There are fluid-filled dilated loops in the lower abdomen. Bladder appears normal, possible 2 vessel cord. IMPRESSION: 1. Viable fetus in the cephalic presentation with an anterior placenta grade 2. 2. The fluid is within normal limits with an amniotic fluid index of 11.28 cm, MVP 3.23 cm. 3. Biophysical profile is 8/8 with good breathing movement and movement seen. 4. There has been good growth with the fetus currently 16th percentile. Femur length is 9th percentile. 5. On close inspection of the kidneys there is only 1 kidney clearly seen. The other kidney is not visualized. There are some dilated fluid-filled loops in the lower abdomen. 6. Could not conclusively determined that there was a three-vessel cord. Possible 2 vessel cord. 7. Suggest an MFM consult. Dictated by: Vikash Vazquez MD 02/29/2024 17:47 Vikahs Vazquez MD in [place] 02/29/2024 17:47
== END 2024-02-29 23:59 | disposition home or self-care (01) ==
LOC: RAD 12:56
PROVIDERS: PCP Family Medicine; Visit Provider Obstetrics & Gynecology
DX: O36.5930 Maternal care for other known or suspected poor fetal growth, third trimester, not applicable or unspecified (principal); O99.323 Drug use complicating pregnancy, third trimester; F12.90 Cannabis use, unspecified, uncomplicated; F17.290 Nicotine dependence, other tobacco product, uncomplicated; O09.293 Supervision of pregnancy with other poor reproductive or obstetric history, third trimester; Z3A.35 35 weeks gestation of pregnancy
CPT/HCPCS: 76816; 76819; 76820

== ENCOUNTER 2024-03-23 20:30 | Outpatient (CLI) | payer OTHER, SELFPAY ==
[2024-03-23 20:40] VITALS: BMI 20.7
[2024-03-23 20:46] LABS: Appearance,Urine SL CLOUDY (Clear); Bilirubin,Urine Negative (Negative); Blood, Urine Negative (Negative); Color,Urine YELLOW (Yellow); Glucose,Urine (UA) Negative (Negative); Ketones,Urine Negative (Negative); Leukocyte Esterase,Urine Negative (Negative); Microscopic, Urine URINE MICROSCOPIC (MICROSCOPIC); Nitrate,Urine Negative (Negative); Protein,Urine Negative (Negative); Urobilinogen,Urine 0.2 EU/dl (0.2)
[2024-03-23 20:50] VITALS: BP 131/89; PULSE 77; RESP 17; TEMP 36.7; O2SAT 100; BMI 20.7
[2024-03-23 20:59] LABS: Barbiturates Screen,Urine Negative ng/ml (<200); Benzodiazepines Screen,Urine Negative ng/ml (<200)
[2024-03-23 21:00] LABS: Amphetamine/Metha Screen,Urine Negative ng/ml (<1000)
[2024-03-23 21:01] LABS: Cannabinoid Screen,Urine Negative ng/ml (<50); Cocaine Screen,Urine Negative ng/ml (<300)
[2024-03-23 21:02] LABS: Methadone Screen,Urine Negative ng/ml (<300)
[2024-03-23 21:03] LABS: Amorphous Sediment,Urine Trace /lpf; Bacteria,Urine 1+ /lpf; Opiate Screen,Urine Negative ng/ml (<300); Phencyclidine Screen,Urine Negative ng/ml (<25)
[2024-03-23] MEDS: LACTATED RINGERS 1000ML 1,000 ML 999 ML IV (21:30)
[2024-03-23 21:45] LABS: Chloride 108 mmol/L (98-107); Potassium 3.4 mmoL/L (3.5-5.1); Sodium 135 mmol/L (136-145)
[2024-03-23 21:47] LABS: Blood Urea Nitrogen 4 mg/dl (7-17); Creatinine Clearance Estimated 129 mL/min (50-200); Estimated Glomerular Filt Rate 149 ml/min (>60); GFR (African American) 180 ML/MIN (>60)
[2024-03-23 21:48] LABS: Alanine Aminotransferase 45 U/L (12-78); Albumin Level 3.2 g/dl (3.5-5.0); Alkaline Phosphatase 180 U/L (38-126); Anion Gap 8.4 mEq/L (5-15); Aspartate Amino Transferase 35 U/L (14-36); Bilirubin,Total 0.5 mg/dl (0.2-1.3); Calcium 8.7 mg/dl (8.4-10.2); Carbon Dioxide 22 mmol/L (22.0-30.0); Globulin 3.2 g/dL (1.3-3.2); Glucose 93 mg/dl (74-100); Total Protein,Serum 6.4 g/dl (6.3-8.2)
[2024-03-29 11:40] LABS: Bile Acids 13.7
== END 2024-03-23 22:28 | disposition home or self-care (01) ==
LOC: OBOUT 20:32 → OB 20:33
PROVIDERS: PCP Family Medicine; Visit Provider Obstetrics & Gynecology
DX: L29.9 Pruritus, unspecified (principal); O99.713 Diseases of the skin and subcutaneous tissue complicating pregnancy, third trimester; Z3A.36 36 weeks gestation of pregnancy
CPT/HCPCS: 80053; 80307; 81001; 82239; G0463; J7120

== ENCOUNTER 2024-03-29 16:17 | Inpatient (IN) | payer OTHER, SELFPAY ==
[2024-03-29 13:52] VITALS: BP 124/89; PULSE 84; RESP 18; TEMP 36.6; O2SAT 100; BMI 20.7
[2024-03-29 14:03] LABS: Microscopic, Urine URINE MICROSCOPIC (MICROSCOPIC)
[2024-03-29 14:07] LABS: Appearance,Urine CLEAR (Clear); Bilirubin,Urine Negative (Negative); Blood, Urine Negative (Negative); Color,Urine YELLOW (Yellow); Glucose,Urine (UA) Negative (Negative); Ketones,Urine Negative (Negative); Leukocyte Esterase,Urine Negative (Negative); Nitrate,Urine Negative (Negative); Protein,Urine Negative (Negative); Urobilinogen,Urine 0.2 EU/dl (0.2)
[2024-03-29 14:28] LABS: Barbiturates Screen,Urine Negative ng/ml (<200)
[2024-03-29 14:29] LABS: Benzodiazepines Screen,Urine Negative ng/ml (<200)
[2024-03-29 14:30] LABS: Amphetamine/Metha Screen,Urine Negative ng/ml (<1000); Cocaine Screen,Urine Negative ng/ml (<300)
[2024-03-29 14:31] LABS: Methadone Screen,Urine Negative ng/ml (<300)
[2024-03-29 14:32] LABS: Cannabinoid Screen,Urine Negative ng/ml (<50); Phencyclidine Screen,Urine Negative ng/ml (<25)
[2024-03-29 14:33] LABS: Opiate Screen,Urine Negative ng/ml (<300)
[2024-03-29 14:41] LABS: Bacteria,Urine Trace /lpf; Squamous Epithelial Cell,Urine Occasional #/hpf (0-5); WBC,Urine Occasional #/hpf (0-3)
[2024-03-29] MEDS: LACTATED RINGERS 1000ML 1,000 ML 999 ML IV (15:01)
[2024-03-29 16:46] VITALS: BMI 21.2
--- NOTE | 2024-03-29 17:00 | P.HP_ITS ---
History of Present Illness *Admission Date: 03/29/24 *Reason for visit:: Labor *History of present illness: Cheli Hraris is a 24yo who presented to labor and delivery today with regular painful contractions. States that these started yesterday and have gotten progressively worse. This is complicated by a two-vessel cord, pelvic kidney, vaping in , recently diagnosed cholestasis of , and history of preeclampsia in her prior . She had a carrier screening and NIPT early in and it was significant for a low risk male . On arrival she also complains of diarrhea. Endorses good movement, denies leakage of fluid or vaginal bleeding. Patient was supposed to have GBS collected on Wednesday but she was unable to make it to that appointment so her GBS is unknown GBS unknown less than 37 weeks gestation will start antibiotic prophylaxis AB-, antibody negative, rubella immune, hepatitis B negative, hepatitis C negative, RPR negative, HIV negative 1 hour GTT: 115 GBS unknown [facility] Disclaimer: The information contained in this section may have been updated after the patient was seen, as this information can be updated by other users. Medical History (Updated 03/29/24 @ 17:09 by Inessa Aldridge DO) Intrahepatic cholestasis of in third trimester Pruritus of complicated by genitourinary abnormality Two vessel umbilical cord in [place] , antepartum SGA (small for gestational age), , affecting care of mother, antepartum Rh negative state in antepartum period Marijuana use during Vaping nicotine dependence, tobacco product History of pre-eclampsia in prior , currently Surgical History No significant past surgical history Family History Father Hyperglycemia Social History Smoking Status: Current every day smoker tobacco type: e-cigarettes second hand exposure: No alcohol intake: never current occupational status: employed Travel in the last 8 weeks: None Review of Systems Review of Systems Review of systems (narrative): Review of Systems Constitutional: Denies fever, chills, and sweats Eyes: Denies vision change/ pain Respiratory: Denies cough and shortness of breath Cardiovascular: Denies chest pain and lightheadedness Gastrointestinal: Admits abdominal pain with contractions. Denies nausea, vomiting. Endorses diarrhea Genitourinary: Denies dysuria and incontinence Extremities: Endorses worsening itching of her palms and soles Musculoskeletal: Denies shoulder pain and back pain Neurological: Denies change in speech or headaches Meds Home Medications and Allergies Home Medications Medication Instructions Recorded Confirmed Type vits no.126-ferrous fum 1 tab PO DAILY 09/02/23 03/24/24 History 28 mg iron-folic acid 800 mcg tablet (Classic ) hydroxyzine HCl 25 mg tablet 25 mg PO Q8H PRN itching #30 tabs 03/23/24 03/24/24 Rx potassium chloride 20 mEq 40 meq (2 x 20 mEq) PO DAILY 5 03/27/24 Rx tablet,extended days #10 tabs release(part/cryst) (Klor-Con M) ursodiol 300 mg capsule 300 mg PO BID #30 caps 03/29/24 Rx New Prescriptions to Start Prescriptions: Allergies Allergy/AdvReac Type Severity Reaction Status Date / Time No Known Allergies Allergy Verified 03/24/24 10:13 Exam Data for Last 24 hours Vital signs and Labs for Last 24 Hours: Temp Pulse Resp BP Pulse Ox O2 Del Method 97.9 F 84 18 124/89 100 Room Air 03/29/24 13:52 03/29/24 13:52 03/29/24 13:52 03/29/24 13:52 03/29/24 13:52 03/29/24 13:52 Laboratory Results - last 24 hr 03/29/24 13:57: Urine Color Yellow, Urine Appearance Clear, Urine pH 6.0, Ur Specific [place] 1.010, Urine Protein Negative, Urine Glucose (UA) Negative, Urine Ketones Negative, Urine Blood Negative, Urine Nitrate Negative, Urine Bilirubin Negative, Urine Urobilinogen 0.2, Ur Leukocyte Esterase Negative, Urine RBC None, Urine WBC Occasional, Ur Squamous Epith Cells Occasional, Urine Bacteria Trace, Urine Opiates Screen Negative, Urine Methadone Screen Negative, Ur Barbituates Screen Negative, Ur Phencyclidine Scrn Negative, Ur Amphetamines Screen Negative, U Benzodiazepines Scrn Negative, Urine Cocaine Screen Negative, U Marijuana (THC) Screen Negative I & O for Last 24 hours: Intake & Output 03/26/24 03/27/24 03/28/24 03/29/24 23:59 23:59 23:59 23:59 Weight 109 lb Narrative: General: patient is alert oriented in no acute distress and responds appropriately to questions. HEENT: NCAT, EOMI, moist mucous membranes, neck supple with full ROM Cardiovascular: RRR +S1/S2, no murmurs or rubs Pulmonary: Clear to auscultation bilaterally, nonlabored breathing, symmetric chest rise Abdominal: Gravid abdomen appropriate for gestation. No guarding, rebound, or tenderness noted. SVE: 3/80/-3 Extremities: trace edema, no tenderness or cyanosis noted Skin: Normal turgor, intact, warm. Negative for erythema, pallor, petechia, or lesions Neurologic: Negative for sensory or motor deficit Psychiatric: Normal affect, normal thought process, good judgment and insight, no depression or anxious mood appreciated. *Routine HEENT Exam Head: Present normocephalic and atraumatic Eye: Present EOMI, PERRL and normal accommodation; Absent conjunctival icterus, scleral injection, nystagmus or exophthalmos ENT: Present mucous membranes moist *Routine Respiratory Exam Respiratory: Present CTA bilaterally, normal respiratory effort, able to speak in complete sentences and symmetric chest movement; Absent accessory muscle use, decreased breath sounds, rales, respiratory distress, wheezes, distant breath sounds or diminished air movement *Routine Cardiovascular Exam Cardiovascular: Present RRR, Normal S1 and Normal S2; Absent murmur or gallop *Routine Abdominal Exam Abdominal: Present soft and normoactive bowel sounds; Absent tenderness, distended, rebound or guarding *Routine Rectal Exam Rectal:: deferred *Routine Genitalia Exam Genitalia:: normal female Assessment and Plan *Assessment and plan (1) Intrahepatic cholestasis of in third trimester: Status: Acute Category: Medical Code(s): O26.643 - Intrahepatic cholestasis of , third trimester (2) complicated by genitourinary abnormality: Problem Comment: Left kidney is in the pelvis. Status: Acute Category: Medical Code(s): O35.EXX0 - Maternal care for other (suspected) abnormality and damage, genitourinary anomalies, not applicable or unspecified (3) Two vessel umbilical cord in [place] , antepartum: Status: Acute Category: Medical Code(s): O09.899 - Supervision of other high risk pregnancies, unspecified trimester (4) SGA (small for gestational age), , affecting care of mother, antepartum: Status: Acute Qualifiers: Fetus number: single or unspecified fetus Qualified Code(s): O36.5990 - Maternal care for other known or suspected poor growth, unspecified trimester, not applicable or unspecified Category: Medical Code(s): O36.5990 - Maternal care for other known or suspected poor growth, unspecified trimester, not applicable or unspecified (5) Rh negative state in antepartum period: Status: Acute Category: Medical Code(s): O26.899 - Other specified related conditions, unspecified trimester; Z67.91 - Unspecified blood type, Rh negative (6) Marijuana use during : Status: Acute Category: Medical Code(s): O99.320 - Drug use complicating , unspecified trimester; F12.90 - Cannabis use, unspecified, uncomplicated (7) Vaping nicotine dependence, tobacco product: Status: Acute Category: Social Hx Code(s): F17.290 - Nicotine dependence, other tobacco product, uncomplicated (8) History of pre-eclampsia in prior , currently : Status: Acute Category: Medical Code(s): O09.299 - Supervision of with other poor reproductive or obstetric history, unspecified trimester (9) : Status: Acute Qualifiers: Weeks of gestation: 29 weeks Qualified Code(s): Z3A.29 - 29 weeks gestation of Category: Medical Code(s): Z34.90 - Encounter for supervision of normal , unspecified, unspecified trimester (10) labor in third trimester: Status: Acute Category: Medical Code(s): O60.03 - labor without delivery, third trimester Plan # labor at 36w6d #Intrahepatic looses of #Two-vessel cord # pelvic kidney -Admit to labor and delivery for labor monitoring and delivery. Augmented with AROM. Continue monitoring and start Pitocin per protocol for augmentation if needed. Patient currently manan every 3 minutes on her own with a category 1 strip. Amniotomy be completed, patient tolerated well and infant tolerated well. Category 1 strip following AROM. Clear fluid noted -Recently diagnosed with intrahepatic cholestasis of and states that the itching has gotten significantly worse. LFTs appropriate, bile acids elevated -Continue monitoring -GBS unknown and less than 37 weeks gestation, antibiotics started -Counseled patient on the risk of transfer for NICU admission. Patient voiced understanding -Counseled risk on risk of delivery for intolerance of labor, patient voiced understanding -Patient has a history of preeclampsia requiring magnesium we will follow her blood pressures closely after delivery
[2024-03-29 17:40] LABS: Basophils % 0.3 % (0.1-2.0); Eosinophils # 0.1 K/mm3 (0.0-0.4); Hematocrit 29.8 % (37.0-47.0); Hemoglobin 9.6 g/dL (12.2-16.2); Lymphocytes # 2.1 K/mm3 (0.7-4.5); Lymphocytes % 20.4 % (10-50); Mean Corpuscular HGB Conc 32.1 g/dL (31.8-35.4); Mean Corpuscular Hemoglobin 28.7 pg (27.0-31.2); Mean Corpuscular Volume 89.5 fl (81-99); Mean Platelet Volume 10.6 fl (7.4-10.4); Monocytes # 0.5 K/mm3 (0.1-1.0); Monocytes % 4.9 % (1.7-9.3); Neutrophils # 7.7 K/mm3 (1.8-7.8); Neutrophils % 73.4 % (37.0-80.0); Platelet Count 267 K/mm3 (142-424); Red Blood Count 3.33 M/mm3 (4.20-5.40); Red Cell Distribution Width 14.7 % (11.5-17.5); White Blood Count 10.4 K/mm3 (4.8-10.8)
[2024-03-29] MEDS: DEXTROSE 5%-LACTATED RINGERS 1,000 ML 125 ML IV (17:53)
[2024-03-29] MEDS: OXYTOCIN/RINGERS LACTATE 30 UNITS/500 ML BAG IV (17:54)
[2024-03-29] MEDS: LACTATED RINGERS 1000ML 1,000 ML 500 ML IV (17:54)
[2024-03-29] MEDS: AMPICILLIN SODIUM 2 GM in 0.9 % SODIUM CHLORIDE 100 ML IV (18:30)
--- NOTE | 2024-03-29 20:00 | EXP.ANES.CKL ---
[facility] Disclaimer: The information contained in this section may have been updated after the patient was seen, as this information can be updated by other users. Medical History Intrahepatic cholestasis of in third trimester Pruritus of complicated by genitourinary abnormality Two vessel umbilical cord in [place] , antepartum SGA (small for gestational age), , affecting care of mother, antepartum Rh negative state in antepartum period Marijuana use during Vaping nicotine dependence, tobacco product History of pre-eclampsia in prior , currently Surgical History No significant past surgical history Family History Father Hyperglycemia Social History (Updated 03/29/24 @ 17:54 by Pavel Hampton RN) Smoking Status: Current every day smoker tobacco type: e-cigarettes second hand exposure: No alcohol intake: never substance use type: denies use current occupational status: employed Travel in the last 8 weeks: None [facility] Anesthesia Checklist Patient Identification Patient Identification: Arm Band Structural Data Admitted From: Home Planned Operative Procedure/s: Labor Epidural Consent for Planned Operative Procedure(s) Verified: Yes Verified Documents: Surgical Consent and History and Physical NPO Status Verified Time NPO: 00:00 Additional verifications Anesthesia Reactions: No Neurological Assessment Level of Consciousness: Awake, Alert and Appropriate Anesthesia Plan Anesthesia Risk discussed: Yes Anesthesia Plan: Verified ASA Class: II Anesthesia Type: Epidural
[2024-03-29 20:37] VITALS: TEMP 36.8
--- NOTE | 2024-03-29 22:58 | EXP.DN ---
Delivery Note Delivery Date:: 03/29/24 Delivery Time:: 22:39 Anesthesia Type: Epidural Was labor medically induced?: No Induction method: none (augmentation with AROM) Gestational age (weeks): 36 Infant delivered prior to 39 weeks?: Yes Justification for early elective delivery:: Active Labor and Biliary Disorder Gender: Male at 1 minute: 8 at 5 minutes: 9 Delivery Procedure:: Preoperative diagnosis: 1. at 36w6d completed this weeks gestation, vertex 2. Rh negative 3. GBS unknown 4. Regular painful contractions with cervical change 5. pelvic kidney 6. Cholestasis of 7. Two-vessel cord 8. Vaping in 9. History of preeclampsia Postoperative diagnosis: 1. at 36w6d completed this weeks gestation, vertex 2. Rh negative 3. GBS unknown 4. Regular painful contractions with cervical change 5. pelvic kidney 6. Cholestasis of 7. Two-vessel cord 8. Vaping in 9. History of preeclampsia EBL: 150mL Specimen: 1. Cord blood Findings: 1. Liveborn viable male infant: Dolliver. Apgars 8/9 at 1 and 5 minutes respectively. Weight pending at time of dictation 2. Intact perineum Complications: None Cheli Harris is a 24yo who presented with regular painful contractions with the above listed complications. Decision was made to admit the patient and augment her labor with AROM, clear fluid. She received an epidural for anesthesia. Pitocin was started but only ever at a rate of 2 given regular uterine contractions. She progressed to complete. The infant was noted to be in SHE position. With effective maternal pushing there was a nonoperative spontaneous vaginal delivery. There was a nuchal cord x1 that was somersaulted through with delivery. The anterior left shoulder delivered, followed by the posterior shoulder without dystocia. The body and lower extremities delivered without difficulty. The was bulb suctioned and was crying immediately following delivery. The infant was placed on the maternal abdomen and greater than one minute was appreciated for delayed cord clamping. The umbilical cord was doubly clamped and cut. Cord blood was collected and sent for routine testing. The placenta delivered with cord traction and suprapubic contertraction. Pitocin was started and the placenta and cord were inspected. The placenta was noted to be intact. The uterus was firm and bleeding was minimal. The perineum, vaginal trevizo, cervix, and paraurethral area were inspected thoroughly and noted to be free of laceration. This concluded the delivery. The patient was counseled regarding the events of the delivery. The patient tolerated the delivery well. All counts were correct by nursing. Mother and infant were doing well and bonding upon my leaving the delivery room. Placental Delivery Description: Spontaneous
[2024-03-30] MEDS: BENZOCAINE-MENTHOL SPRAY 56GM CAN TP (02:19)
[2024-03-30] MEDS: WITCH HAZEL 40 PADS/BOX 1 EACH TP ×2 (02:20→11:32)
[2024-03-30 04:30] VITALS: BP 124/71; PULSE 86; RESP 20; TEMP 37; O2SAT 99
[2024-03-30] MEDS: ACETAMINOPHEN 500MG TAB 1000 MG PO ×2 (04:34→17:19)
[2024-03-30 06:30] LABS: Basophils # 0.1 K/mm3 (0-0.2); Basophils % 0.6 % (0.1-2.0); Eosinophils # 0.3 K/mm3 (0.0-0.4); Eosinophils % 1.8 % (0.1-12.0); Hematocrit 29.3 % (37.0-47.0); Hemoglobin 9.7 g/dL (12.2-16.2); Lymphocytes # 1.7 K/mm3 (0.7-4.5); Lymphocytes % 11.8 % (10-50); Mean Corpuscular HGB Conc 33.1 g/dL (31.8-35.4); Mean Corpuscular Hemoglobin 28.9 pg (27.0-31.2); Mean Corpuscular Volume 87.2 fl (81-99); Mean Platelet Volume 10.8 fl (7.4-10.4); Monocytes # 0.6 K/mm3 (0.1-1.0); Monocytes % 4.2 % (1.7-9.3); Neutrophils # 11.5 K/mm3 (1.8-7.8); Neutrophils % 81.6 % (37.0-80.0); Platelet Count 236 K/mm3 (142-424); Red Blood Count 3.35 M/mm3 (4.20-5.40); Red Cell Distribution Width 14.7 % (11.5-17.5); White Blood Count 14.2 K/mm3 (4.8-10.8)
--- NOTE | 2024-03-30 07:34 | P.CONPHA_ITS ---
Pharmacy Intervention Comments: MEDICATION RECONCILIATION COMPLETED ON PATIENT USING EXTERNAL FILL HISTORY FROM PHARMACY AND LIST FROM [facility]. -KHUSHBU WALDROPD
--- NOTE | 2024-03-30 07:34 | HMH.PHAINT1 ---
Pharmacy Intervention Comments: MEDICATION RECONCILIATION COMPLETED ON PATIENT USING EXTERNAL FILL HISTORY FROM PHARMACY AND LIST FROM [facility] OFFICE. -KHUSHBU WALDROPD
--- NOTE | 2024-03-30 10:34 | P.PN_ITS ---
Subjective *Date: 03/30/24 *Time: 10:38 Interval history: PPD # 1 s/p Feeling well. Pain controlled. Breast feeding. Lochia is appropriate. Voiding without difficulty and passing flatus. Tolerating regular diet. Denies fever/chills, chest pain and shortness of breath. No headaches, vision changes, lightheadedness/dizziness. No lower extremity swelling. Ambulating well ad zeina. Medical Exam Vital signs and Labs for Last 24 Hours: Vital Signs Temp Pulse Resp BP Pulse Ox O2 Del Method 03/30/24 04:30 98.6 F 86 20 124/71 99 Room Air 03/29/24 20:37 98.2 F 03/29/24 13:52 97.9 F 84 18 124/89 100 Room Air Intake and Output 03/29/24 03/30/24 03/30/24 23:59 07:59 15:59 Output Total 1000 / 1000 Balance -1000 / -1000 Output: Output, Urine Amount 1000 / 1000 Other: Weight 109 lb Laboratory Results - last 24 hr 03/29/24 13:57: Urine Color Yellow, Urine Appearance Clear, Urine pH 6.0, Ur Specific [place] 1.010, Urine Protein Negative, Urine Glucose (UA) Negative, Urine Ketones Negative, Urine Blood Negative, Urine Nitrate Negative, Urine Bilirubin Negative, Urine Urobilinogen 0.2, Ur Leukocyte Esterase Negative, Urine RBC None, Urine WBC Occasional, Ur Squamous Epith Cells Occasional, Urine Bacteria Trace, Urine Opiates Screen Negative, Urine Methadone Screen Negative, Ur Barbituates Screen Negative, Ur Phencyclidine Scrn Negative, Ur Amphetamines Screen Negative, U Benzodiazepines Scrn Negative, Urine Cocaine Screen Negative, U Marijuana (THC) Screen Negative 03/29/24 17:20: WBC 10.4, RBC 3.33 L, Hgb 9.6 L, Hct 29.8 L, MCV 89.5, MCH 28.7, MCHC 32.1, RDW 14.7, Plt Count 267, MPV 10.6 H, Neut % (Auto) 73.4, Lymph % (Auto) 20.4, [place] % (Auto) 4.9, Eos % (Auto) 1.0, Baso % (Auto) 0.3, Neut # (Auto) 7.7, Lymph # (Auto) 2.1, [place] # (Auto) 0.5, Eos # (Auto) 0.1, Baso # (Auto) 0.0, Blood Type AB Negative, Antibody Screen Positive, Antibody Identification Anti-D 03/30/24 06:15: WBC 14.2 H D, RBC 3.35 L, Hgb 9.7 L, Hct 29.3 L, MCV 87.2, MCH 28.9, MCHC 33.1, RDW 14.7, Plt Count 236, MPV 10.8 H, Neut % (Auto) 81.6 H, Lymph % (Auto) 11.8, [place] % (Auto) 4.2, Eos % (Auto) 1.8, Baso % (Auto) 0.6, Neut # (Auto) 11.5 H, Lymph # (Auto) 1.7, [place] # (Auto) 0.6, Eos # (Auto) 0.3, Baso # (Auto) 0.1 I & O for Labs for Last 24 Hours: Intake & Output 03/27/24 03/28/24 03/29/24 03/30/24 23:59 23:59 23:59 23:59 Output Total 1000 / 1000 Balance -1000 / -1000 Weight 109 lb Head: Present atraumatic and normocephalic ENT: Present mucous membranes moist Neck: Present normal inspection and full ROM Respiratory: Present CTA bilaterally and normal respiratory effort Cardiac: Present Reg Rate and Rhythm GI: Present soft; Absent distention or tenderness Comments:: Uterine fundus firm and below umbilicus Rectal (female): Present deferred (female): Present deferred Extremities: Present normal inspection; Absent edema or calf tenderness Neuro: Present alert, awake and moves all extremities Assessment and Plan *Assessment and plan (1) Status post normal vaginal delivery: Status: Acute Category: Medical (2) labor in third trimester: Status: Acute Category: Medical Code(s): O60.03 - labor without delivery, third trimester (3) Intrahepatic cholestasis of in third trimester: Status: Acute Category: Medical Code(s): O26.643 - Intrahepatic cholestasis of , third trimester (4) complicated by genitourinary abnormality: Problem Comment: Left kidney is in the pelvis. Status: Acute Category: Medical Code(s): O35.EXX0 - Maternal care for other (suspected) abnormality and damage, genitourinary anomalies, not applicable or unspecified (5) Two vessel umbilical cord in edwards , antepartum: Status: Acute Category: Medical Code(s): O09.899 - Supervision of other high risk pregnancies, unspecified trimester (6) Vaping nicotine dependence, tobacco product: Status: Acute Category: Social Hx Code(s): F17.290 - Nicotine dependence, other tobacco product, uncomplicated (7) History of pre-eclampsia in prior , currently : Status: Acute Category: Medical Code(s): O09.299 - Supervision of with other poor reproductive or obstetric history, unspecified trimester (8) Marijuana use during : Status: Acute Category: Medical Code(s): O99.320 - Drug use complicating , unspecified trimester; F12.90 - Cannabis use, unspecified, uncomplicated (9) Rh negative state in antepartum period: Status: Acute Category: Medical Code(s): O26.899 - Other specified related conditions, unspecified trimester; Z67.91 - Unspecified blood type, Rh negative (10) Anemia in , delivered, current hospitalization: Status: Acute Category: Medical Code(s): O99.02 - Anemia complicating childbirth Plan Continue routine care Encouraged increased ambulation Plan d/c home PPD # 2 or PPD # 3
[2024-03-30] MEDS: POTASSIUM CHLORIDE 20MEQ TAB 40 MEQ PO (11:33)
--- NOTE | 2024-03-30 23:09 | PC.NURSE ---
Rhogam 1500 IU dose being given to patient IM in left vastus lateralis. Lot number [id number] and expiration date 06/10/2026. Patient blood type is AB- and blood type B+. Patient name and verified. Patient tolerated well.
[2024-03-31 09:30] VITALS: BP 138/90; PULSE 87; RESP 16; TEMP 36.4; O2SAT 99
[2024-03-31] MEDS: ACETAMINOPHEN 500MG TAB 1000 MG PO (10:02)
[2024-03-31] MEDS: POTASSIUM CHLORIDE 20MEQ TAB 40 MEQ PO (11:31)
--- NOTE | 2024-03-31 14:58 | P.DS_ITS ---
General Admission date:: 03/29/24 Discharge date: 03/31/24 HPI HPI HPI: PPD # 2 s/p Feeling well. Pain controlled. Breast feeding. Lochia is appropriate. Voiding without difficulty and passing flatus. Tolerating regular diet. Denies fever/chills, chest pain and shortness of breath. No headaches, vision changes, lightheadedness/dizziness. No lower extremity swelling. Ambulating well ad zeina. Hospital Course Hospital Course Hospital Course: Cheli Harris is a 24yo who presented to labor and delivery today with regular painful contractions. States that these started 03/28 progressively worsened. This is complicated by a two-vessel cord, pelvic kidney, vaping in , recently diagnosed cholestasis of , and history of preeclampsia in her prior . She had a carrier screening and NIPT early in and it was significant for a low risk male infant. On arrival she also complains of diarrhea. Endorses good movement, denies leakage of fluid or vaginal bleeding. Patient was supposed to have GBS collected on Wednesday 03/28 but she was unable to make it to that appointment so her GBS is unknown She augmentation of labor with with amniotomy followed by Pitocin. She received ampicillin for GBS prophylaxis. She delivered a live male baby, [place], weighing 6 lb 9 oz, APGARs 8 (1 min), 9 (5 min). EBL 150 mL. She did well . Pain controlled. Breast feeding. Light lochia. Voiding without difficulty and passing flatus. Tolerating regular diet. Denies fever/chills, chest pain and shortness of breath. No headaches, dizziness/lightheadedness or vision changes. Vital signs stable, afebrile. Heart regular rate and rhythm. Lungs clear to auscultation. Abdomen soft, nontender. No lower extremity swelling. Ambulating well ad zeina. Normal hospital course. She was discharged to home on POD # 2 with instructions to follow-up in the office in 2 weeks or sooner if needed. Exam Data for Last 24 hours Vital signs and Labs for Last 24 Hours: Temp Pulse Resp BP Pulse Ox O2 Del Method 97.5 F L 87 16 138/90 99 Room Air 03/31/24 09:30 03/31/24 09:30 03/31/24 09:30 03/31/24 09:30 03/31/24 09:30 03/31/24 09:30 Laboratory Results - last 24 hr 03/30/24 19:31: Screen Negative, Baby's Rh Status Positive, Rhogam Infusion Rhogam release I & O for Last 24 hours: Intake & Output 03/28/24 03/29/24 03/30/24 03/31/24 23:59 23:59 23:59 23:59 Output Total 1000 / 1000 Balance -1000 / -1000 Weight 109 lb Constitutional Constitutional: no acute distress and cooperative *Routine HEENT Exam Head: Present normocephalic and atraumatic Eye: Absent conjunctivae pink ENT: Present mucous membranes moist *Routine Neck Exam Neck: Present full ROM *Routine Respiratory Exam Respiratory: Present CTA bilaterally and normal respiratory effort *Routine Cardiovascular Exam Cardiovascular: Present RRR *Routine Abdominal Exam Abdominal: Present soft and normoactive bowel sounds; Absent tenderness or distended Comments: Uterine fundus firm and below umbilicus *Routine Rectal Exam Patient deferred: visual exam *Routine Exam Patient deferred: external exam *Routine Extremities Exam Extremities: Present full ROM; Absent edema or calf tenderness *Routine Neurological Exam Neurological: Present alert, moving all extremities and normal speech Routine Psychiatric Exam Psychiatric: Present normal affect and cooperative Results Data Completed and Pending Labs on day of discharge: Labs from last 24 hours 03/30/24 19:31 Screen Negative Baby's Rh Status Positive Rhogam Infusion Rhogam release DS: Diagnosis Discharge Diagnosis (1) Status post normal vaginal delivery: Status: Acute (2) labor in third trimester: Status: Acute Code(s): O60.03 - labor without delivery, third trimester (3) Intrahepatic cholestasis of in third trimester: Status: Acute Code(s): O26.643 - Intrahepatic cholestasis of , third trimester (4) complicated by genitourinary abnormality: Status: Acute Code(s): O35.EXX0 - Maternal care for other (suspected) abnormality and damage, genitourinary anomalies, not applicable or unspecified Problem details: Left kidney is in the pelvis. (5) Two vessel umbilical cord in ed[place] , antepartum: Status: Acute Code(s): O09.899 - Supervision of other high risk pregnancies, unspecified trimester (6) Vaping nicotine dependence, tobacco product: Status: Acute Code(s): F17.290 - Nicotine dependence, other tobacco product, uncomplicated (7) History of pre-eclampsia in prior , currently : Status: Acute Code(s): O09.299 - Supervision of with other poor reproductive or obstetric history, unspecified trimester (8) Marijuana use during : Status: Acute Code(s): O99.320 - Drug use complicating , unspecified trimester; F12.90 - Cannabis use, unspecified, uncomplicated (9) Rh negative state in antepartum period: Status: Acute Code(s): O26.899 - Other specified related conditions, unspecified trimester; Z67.91 - Unspecified blood type, Rh negative (10) Anemia in , delivered, current hospitalization: Status: Acute Code(s): O99.02 - Anemia complicating childbirth Meds Home Medications and Allergies Home Medications Medication Instructions Recorded Confirmed Type vits no.126-ferrous fum 1 tab PO DAILY 09/02/23 03/29/24 History 28 mg iron-folic acid 800 mcg tablet (Classic ) potassium chloride 20 mEq 40 meq (2 x 20 mEq) PO DAILY 5 03/27/24 03/29/24 Rx tablet,extended days #10 tabs release(part/cryst) (Klor-Con M) ibuprofen 400 mg tablet 800 mg (2 x 400 mg) PO Q8H #40 tabs 03/31/24 Rx New Prescriptions to Start Prescriptions: Clare Sood Allergies Allergy/AdvReac Type Severity Reaction Status Date / Time No Known Allergies Allergy Verified 03/24/24 10:13 Discharge Plan Disposition Patient Disposition: Home, Self-Care Condition: Good Discharge Order Discharge Orders: Discharge Order (Routine); Ordered 03/31/24 Ordered By: Clare Henderson Follow up Plan Follow up with: Clare Henderson DO [Staff Physician] - 2 weeks Prescriptions/Medication Reconciliation: New ibuprofen 400 mg Tablet 800 mg PO Q8H Qty: 40 0RF Continued Classic 28 mg iron- 800 mcg tablet 1 tab PO DAILY potassium chloride [Klor-Con M20] 20 mEq tablet,ER particles/crystals 40 meq PO DAILY 5 Days Qty: 10 0RF Discontinued hydroxyzine HCl 25 mg tablet 25 mg PO Q8H PRN (Reason: itching) Qty: 30 0RF ursodiol 300 mg capsule 300 mg PO BID Qty: 30 0RF Problem Reconciliation Problems Reviewed?: Yes Patient Discharge Instructions ACTIVITY: Limited activity DIET: continue same diet and regular diet Additional Instructions: Discharge: 1. Take 800 mg Ibuprofen every 8 hours as needed for pain. You can also take 500-1000 mg of Tylenol in between doses, every 6-8 hours. 2. Nothing in the vagina for 6 weeks - no intercourse, douching or tampons. No tub baths/hot tubs or swimming pools 3. Reasons to return to L&D or call On-Call doctor - fever (greater than 100.4) - heavy vaginal bleeding (soaking through 1 pad in less than 2 hours) - vaginal discharge (malodorous and/or purulent) - severe headaches not resolved by medication or rest and leg tenderness/edema 4. depression/blues - Normal to feel anxious/overwhelmed for first 2 weeks - Talk to your doctor if: severe anxiety, trouble bonding with baby, withdrawing from other family members, thoughts of harming yourself or others Clare Henderson DO [facility] [phone] Providers Primary Care Provider: Kenton Chavez Provider: Inessa Aldridge Attending Provider: Inessa Aldridge
[2024-03-31 16:50] VITALS: BP 118/77; PULSE 82; RESP 20; TEMP 36.9; O2SAT 98
== END 2024-03-31 20:05 | disposition home or self-care (01) | DRG 806 ==
LOC: OBOUT 16:18 → OB 16:18
PROVIDERS: Admitting Provider Obstetrics & Gynecology; PCP Family Medicine; Visit Provider Obstetrics & Gynecology
DX: O69.81X0 Labor and delivery complicated by cord around neck, without compression, not applicable or unspecified (principal); O26.643 Intrahepatic cholestasis of pregnancy, third trimester; Z37.0 Single live birth; O99.324 Drug use complicating childbirth; O75.89 Other specified complications of labor and delivery; Z3A.36 36 weeks gestation of pregnancy; O99.334 Smoking (tobacco) complicating childbirth; F17.290 Nicotine dependence, other tobacco product, uncomplicated
CPT/HCPCS: 59409; 36415; 80307; 81001; 85025; 85461; 86850; 86870; 94761; G0283; J0290; J2790; J3010; J7120

== ENCOUNTER 2025-08-21 17:46 | Emergency (ER) | payer OTHER, SELFPAY ==
[2025-08-21 18:05] VITALS: BP 127/80; PULSE 97; RESP 18; TEMP 36.8; O2SAT 100; BMI 17.6
--- OUTSIDE RECORDS SUMMARY | 2025-08-21 18:14 | XMS_ITS | Clinical Summary ---
Author Organization [facility] Address [address] [place] [address] Care Team Providers Care Senior Art Director Name Role Phone Provider, No Known Primary Care Provider Unavail able Allergies No known active allergies Medications aspirin 81 MG chewable tablet Chew 1 tablet Daily. Active Multiple Vitamins-Min[place] ls (Adult Gummy) chewable tablet Chew 2 tablets Daily. 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 Patient gives no history of congenital or genetic disorders especially in regard to system. Ultrasound today demonstrates a normally grown fetus. 2 kidneys are seen, however the left kidney is in the pelvis. Amniotic fluid volume is normal. Right umbilical artery is absent. Pelvic kidney is usually functioning well and the most important thing is to be aware of them so they are not mistaken for pelvic masses. Occasionally they do not function well. There is no evidence of renal dysfunction in this fetus today. We would recommend evaluation of the system beginning with an ultrasound of the kidneys after . Patient was counseled regarding movement and will contact her provider immediately if she notices any decreased movement. 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 The incidence of a single umbilical artery is 0.25 to 1% of all edwards pregnancies and up to 4.6% of twin gestations. An isolated SUA with no other structural or chromosomal abnormalities should be distinguished from an SUA that is present with other abnormalities. The rate of associated structural anomalies when a single umbilical artery was detected is reported to range from 13 to 56%. The most common associated anomalies to occur are in the renal, cardiovascular, gastrointestinal and central nervous systems. If the ultrasound reveals only a single umbilical artery and no other anomalies, some studies have suggested an increased risk for intrauterine growth retardation. As such, it is reasonable in the setting of a single umbilical artery to repeat ultrasonographic evaluation at 32 weeks' gestation for assessment of the growth and proceed with increased testing if growth lag is detected. Should the single umbilical artery be associated with other anomalies, then consideration of echocardiogram and/or chromosomal analysis should be entertained. Clearly the staff should be informed of the single umbilical artery such that a detailed physical exam can be performed of the to rule out its association with an anomaly sequence or complex, specifically VATER complex, Meckel-Marie or Zellweger syndrome. Per the ACOG Committee Opinion on an outpatient surveillance from March 2021, increased testing should begin at 36 weeks 0 days gestation and continue weekly for the presence of an isolated single umbilical artery. Social History Tobacco Use Types Packs/Day Years Used Date Smoking Tobacco: Former Cigarettes Smokeless Tobacco: Never Tobacco Cessation:Counseling Given: Not Answered Comments:Quit 4 years ago Alcohol Use Standard Drinks/Week Comments Not Currently 0 (1 standard drink = 0.6 oz pur e alcohol) Abuse Screen Answer Date Recorded Unsafe at Home or Work/School Not on file Feels Threatened by Someone? Not on file Does Anyone Keep You from Co ntacting Others or Doint Things Outside the Home? Not on file 03/01/2024 Physical Sign of Abuse Present Not on file 0 03/01/2024 Housing Stability Answer Date Recorded Current Living Arrangements Not on file 02/15 Potentially Unsafe Housing Conditions Not on gissell e 03/01/2024 Family and Community Support Answer Abrahan e Recorded Help with Day-to-Day Activities Not on file 03/01/2024 Lonely or Isolated Not on file 03/01/2024 Employment Answer Date Recorded Do you want help finding or keeping work or a gretchen b? Not on file 03/01/2024 Disabilities Answer Date Recorded Concentrating, Remembering, or Making Decisions Difficulty Not on file 03/01/2024 Doing Errands Independently Difficulty Not on fi le 03/01/2024 Education Answer Date Recorded Help with school or training? Not on file Preferred Language Not on file 03/01/2024 Comments No Sex and Gender Information Value Date Recorded Sex Assigned at Not on file Legal Sex Female 10:36 AM EDT Gender Identity Not on file Sexual Orientation Not on file Last Filed Vital Signs Vital Sign Reading Time Taken Comments Blood Pressure 106/76 03/08/2024 9:36 AM EDT Pulse - - Temperature - - Respiratory Rate - - Oxygen Saturation - - Inhaled Oxygen Concentration - - Weight 46 kg (101 lb 6.4 oz) 03/08/2024 9:36 AM EDT Height 152.4 cm (5') 03/08/2024 9:38 AM EDT Body Mass Index 19.8 03/08/2024 9:36 AM EDT Plan of Treatment Health Maintenance Due Date Last Done Comments Annual Gynecologic Pelvic an d Breast Exam 1998 ANNUAL PHYSICAL 03/01/2024 INFLUENZA VACCINE 05/18/2025 TDAP/TD VACCINES (3 - Td or Tdap) 01/26/2034 01/27/2024, 06/03/2009 HEPATITIS C SCREENING Completed 08/16/2023 Pneumococcal Vaccine 0-49 Aged Out No longer eligible based on patient's age to complete this topic Insurance [facility] Care Teams Senior Art Director Relationship Specialty Start Date End Date Provider, No Known [facility] [place] [address] PCP - General 03/01/24
[2025-08-21 18:16] LABS: Coronavirus 19, PCR Not Detected (NotDetected); Influenza A, PCR Not Detected (NotDetected); Influenza B, PCR Not Detected (NotDetected)
[2025-08-21 18:20] VITALS: O2SAT 100
--- NOTE | 2025-08-21 18:29 | ED_ITS ---
<Statement entered by Martina Rodriguez DO - 08/23/25 11:46> I was consulted by the SIMON, and we discussed the complexity of problems being addressed. I approve the treatment and management plan for this patient's care in the emergency department, thus performing a substantial portion of the medical decision making. Martina Rodriguez DO Discharge Plan Disposition Patient Disposition: Home, Self-Care Prescriptions Prescriptions: New amoxicillin-pot clavulanate 875-125 mg tablet 1 tab PO BID Qty: 20 0RF No Action Classic 28 mg iron- 800 mcg tablet 1 tab PO DAILY ibuprofen 800 mg tablet 800 mg PO Q8H PRN (Reason: pain) Qty: 20 0RF Referrals Follow up/Referrals: Kenton Chavez MD [Primary Care Provider, Medical] - See instructions Activity Restrictions/Add. Instructions Additional Instructions/Restrictions: Increase fluids and rest. You do have strep. Change her toothbrush out 24 hours after you have had antibiotics. May take Tylenol or ibuprofen for aches and/or fevers. If any worsening signs or symptoms please return to the ED or see your PCP. Clinical Impressions Clinical Impression: Viral infection, Strep pharyngitis Instructions Patient Instructions: Strep Throat, DI for Viral Syndrome Print Language Print Language: Slovak Discharge ED Provider: Martina Rodriguez General Adult HPI <Shana Rogers (ED), ARTIST AND REPERTOIRE MANAGER - Last Filed: 08/21/25 19:07> General Chief complaint: Upper Respiratory Infection Stated complaint: cough,fever,body aches Time Seen by Provider: 08/21/25 18:14 Mode of Arrival: Ambulatory Source of Information: Patient Description of Symptoms (Recalled from ER Triage Doc. by RN): patient presents for fever adn overall not feeling well. sarted yesterday around nap. History of Present Illness HPI narrative: 25-year-old female presents to the ED today for fever as high as 103, fatigue, body aches, dry nose, cough for 2 days. Patient has no nausea, vomiting or diarrhea. No other symptoms. Related Data Home Medications ?Medication ?Instructions ?Recorded ?Confirmed vits no.126-ferrous fum 1 tab PO DAILY 04/12/24 28 mg iron-folic acid 800 mcg tablet (Classic ) Previous Rx's ?Medication ?Instructions ?Recorded ibuprofen 800 mg tablet 800 mg PO Q8H PRN pain #20 t abs 04/12/24 amoxicillin 875 mg-potassium 1 tab PO BID #20 tabs 02/09 clavulanate 125 mg tablet Allergies Allergy/AdvReac Type Severity Reaction Status Date / Time No Known Allergies Allergy Verified 04/12/24 10:06 [facility] <Shana Rogers (ED), ARTIST AND REPERTOIRE MANAGER - Last Filed: 08/21/25 19:07> [facility] Disclaimer: The information contained in this section may have been updated after the patient was seen, as this information can be updated by other users. Medical History Anemia in , delivered, current hospitalization Status post normal vaginal delivery Intrahepatic cholestasis of in third trimester Pruritus of complicated by genitourinary abnormality Left kidney is in the pelvis. Two vessel umbilical cord in ed[place] , antepartum SGA (small for gestational age), , affecting care of mother, antepartum Rh negative state in antepartum period Marijuana use during Vaping nicotine dependence, tobacco product History of pre-eclampsia in prior , currently Surgical History No significant past surgical history Family History Father Hyperglycemia Social History Smoking Status: Never smoker second hand exposure: No alcohol intake: never substance use type: denies use current occupational status: employed Travel in the last 8 weeks?: None Have you lived/traveled outside US in past 30 days?: No Contact w/someone who lives/traveled outside US past 30 days?: No Exposure to someone with infectious disease in past 14 days?: No Do you have a fever (greater than 100.4 F or 38 C)?: No Have you tested positive for COVID-19?: No Exposed to someone with COVID-19 in past 14 days?: No Do you have a sore throat?: No Do you have a cough?: No Do you have any weakness?: No Do you have any diarrhea?: No Are you experiencing any unusual bleeding?: No Do you have any muscle aches/pain?: No Do you have any abdominal pain?: No Are you experiencing loss of taste or smell?: No Other Medical History Have you received the Flu Vaccine for this season: No Have you received the Pneumonia Vaccine: No <Shana Kilalbert (ED), ARTIST AND REPERTOIRE MANAGER - Last Filed: 08/21/25 19:07> ROS Obtained: Yes Systems reviewed as appropriate & no additional complaints except as documented Constitutional Constitutional: Reports as per HPI Physical Exam <Shana Woodrowalbert (ED), ARTIST AND REPERTOIRE MANAGER - Last Filed: 08/21/25 19:07> General General appearance: alert and in no apparent distress Head Head exam: normocephalic Eye Eye exam: Present PERRL and EOMI ENT ENT exam: Present normal oropharynx and mucous membranes moist Neck Neck exam: Present full ROM and trachea midline Respiratory Respiratory exam: Present normal lung sounds bilaterally Cardiovascular Cardiovascular exam: Present regular rate, normal rhythm, normal heart sounds, +S1 and +S2 Abdominal Exam Abdominal exam: Present soft and normal bowel sounds Extremities Exam Extremities exam: Present full ROM and normal capillary refill Neurological Exam Neurological exam: Present alert and oriented X3 Skin Skin exam: Present warm and dry Medical Decision Making <Shana Rogers (ED), ARTIST AND REPERTOIRE MANAGER - Last Filed: 08/21/25 19:07> Medical Records Screening: Per USPSTF and CDC recommendations, given the prevalence of disease in our region, it is our hospital?s policy to screen for HIV and viral Hepatitis for all patients aged 18 and over and those with ongoing risk factors. Loki Inquiry Pt receiving controlled substance: No Loki was queried for this patient: No Vital Signs: 08/21/25 18:05 08/21/25 18:20 08/21/25 19:27 Temperature 98.2 F 98.2 F Temperature Source Oral Oral Pulse Rate 82 Pulse Rate [Right Radial] 97 H Respiratory Rate 18 18 Blood Pressure 126/78 Blood Pressure [Right Arm] 127/80 Blood Pressure Mean [Right Arm] 95 Blood Pressure Source [Right Arm] Automatic Cuff Blood Pressure Position Sitting Blood Pressure Position [Right Arm] Sitting 02 Sat by Pulse Oximetry 100 100 Oxygen Delivery Method Room Air Room Air Room Air Lab Data Lab Results 08/21/25 18:09: SARS-CoV-2 (PCR) Not detected, Influenza A Untype (PCR) Not detected, Influenza Type B (PCR) Not detected, Group A Strep Rapid Positive A Orders (Tests/Meds): ORDERS Category Date Time Status Rapid PCR Covid and Flu A/B Stat Lab 08/21/25 18:09 Completed Rapid Strep Scrn Group A [Strep Scrn Group A (Rapid)] Lab 08/21/25 18:09 Completed Stat Medical Decision Narrative: patient is a 25-year-old female presenting to the emergency department for evaluation of COVID, flu symptom. Patient is hemodynamically stable and nontoxic-appearing upon arrival, afebrile. Differential diagnosis includes viral illness, flu, COVID, among others. We have done a flu COVID swab, and strep swab. Patient is positive for strep. She will be treated with antibiotics. Patient will be safe for discharge home. <Martina Rodriguez, DO - Last Filed: 08/23/25 11:46> Vital Signs: 08/21/25 18:05 08/21/25 18:20 08/21/25 19:27 Temperature 98.2 F 98.2 F Temperature Source Oral Oral Pulse Rate 82 Pulse Rate [Right Radial] 97 H Respiratory Rate 18 18 Blood Pressure 126/78 Blood Pressure [Right Arm] 127/80 Blood Pressure Mean [Right Arm] 95 Blood Pressure Source [Right Arm] Automatic Cuff Blood Pressure Position Sitting Blood Pressure Position [Right Arm] Sitting 02 Sat by Pulse Oximetry 100 100 Oxygen Delivery Method Room Air Room Air Room Air Lab Data Lab results reviewed: Yes I reviewed the patient's lab results. Lab Results 08/21/25 18:09: SARS-CoV-2 (PCR) Not detected, Influenza A Untype (PCR) Not detected, Influenza Type B (PCR) Not detected, Group A Strep Rapid Positive A Orders (Tests/Meds): ORDERS Category Date Time Status Rapid PCR Covid and Flu A/B Stat Lab 08/21/25 18:09 Completed Rapid Strep Scrn Group A [Strep Scrn Group A (Rapid)] Lab 08/21/25 18:09 Completed Stat Medical Decision Narrative: patient is a 25-year-old female presenting to the emergency department for evaluation of fever, body aches, upper respiratory symptoms. Patient is hemodynamically stable and nontoxic-appearing upon arrival, afebrile. Differential diagnosis includes viral illness, flu, COVID, PNA, among others. Patient has no respiratory distress, patient has bilateral breath sounds that are unremarkable. Low concern for pneumonia at this time. Will do a viral swab and a strep swab given presence of exudates on exam. Patient is positive for strep. She will be treated with antibiotics. Patient will be safe for discharge home. Critical Care <Shana Rogers (ED), ARTIST AND REPERTOIRE MANAGER - Last Filed: 08/21/25 19:07> Critical Care Time Critical Care Time: No
[2025-08-21 18:46] LABS: Strep Scrn Group A (Rapid) Positive (Negative)
[2025-08-21 19:27] VITALS: BP 126/78; PULSE 82; RESP 18; TEMP 36.8; O2SAT 100
== END 2025-08-21 19:28 | disposition home or self-care (01) ==
PROVIDERS: Emergency Provider Student in an Organized Health Care Education/Training Program; PCP Family Medicine
DX: J02.0 Streptococcal pharyngitis (principal); R50.9 Fever, unspecified
CPT/HCPCS: 87430; 87636; 99283; 99284

== ENCOUNTER 2025-09-07 14:10 | Emergency (ER) | payer OTHER, SELFPAY ==
[2025-09-07 14:19] VITALS: BP 155/93; PULSE 79; RESP 18; TEMP 36.9; O2SAT 100; BMI 16.6
[2025-09-07 14:20] VITALS: BP 155/93; PULSE 98; O2SAT 98
--- NOTE | 2025-09-07 14:31 | [facility].EDGENADL ---
Discharge Plan Disposition Patient Disposition: Home, Self-Care Prescriptions Prescriptions: No Action Classic 28 mg iron- 800 mcg tablet 1 tab PO DAILY ibuprofen 800 mg tablet 800 mg PO Q8H PRN (Reason: pain) Qty: 20 0RF amoxicillin-pot clavulanate 875-125 mg tablet 1 tab PO BID Qty: 20 0RF Referrals Follow up/Referrals: Kenton Chavez MD [Primary Care Provider, Medical] - See instructions Activity Restrictions/Add. Instructions Additional Instructions/Restrictions: Today you were evaluated in the emergency department. Your test was negative. Please make sure that you follow-up Wednesday. Increase your fluid intake and rest. Return to the ED for any worsening of condition. Clinical Impressions Clinical Impression: Vaginal bleeding Instructions Patient Instructions: DI for Vaginal Bleeding Print Language Print Language: Uruguayan Discharge ED Provider: Quinton Jean Baptiste Adult HPI General Chief complaint: Vaginal Bleeding Stated complaint: Heavy vaginal bleeding Time Seen by Provider: 09/07/25 14:15 Mode of Arrival: Ambulatory Source of Information: Patient Description of Symptoms (Recalled from ER Triage Doc. by RN): Pt presents for evaluation of vaginal bleeding that filled the toilet and started 30 minutes [employer]. Pt states she has had 2 positive home tests, and 2 negative tests. Endorses having mild abdominal cramping that she rates as a 3/10. History of Present Illness HPI narrative: Patient is a 25-year-old with no significant PMHx who presents to the ED for complaints of vaginal that occurred 30 minutes prior to arrival. Patient denies any pain at this time. She states that last week she had 2 positive test and then today had 2 negative test. Related Data Home Medications ?Medication ?Instructions ?Recorded ?Confirmed vits no.126-ferrous fum 1 tab PO DAILY 09/02/23 04/12/24 28 mg iron-folic acid 800 mcg tablet (Classic ) Previous Rx's ?Medication ?Instructions ?Recorded ibuprofen 800 mg tablet 800 mg PO Q8H PRN pain #20 tabs 04/12/24 amoxicillin 875 mg-potassium 1 tab PO BID #20 tabs 08/21/25 clavulanate 125 mg tablet Allergies Allergy/AdvReac Type Severity Reaction Status Date / Time No Known Allergies Allergy Verified 04/12/24 10:06 [facility] Disclaimer: The information contained in this section may have been updated after the patient was seen, as this information can be updated by other users. Medical History Anemia in , delivered, current hospitalization Status post normal vaginal delivery Intrahepatic cholestasis of in third trimester Pruritus of complicated by genitourinary abnormality Left kidney is in the pelvis. Two vessel umbilical cord in [place] , antepartum SGA (small for gestational age), , affecting care of mother, antepartum Rh negative state in antepartum period Marijuana use during Vaping nicotine dependence, tobacco product History of pre-eclampsia in prior , currently Surgical History No significant past surgical history Family History Father Hyperglycemia Social History Smoking Status: Current every day smoker tobacco type: e-cigarettes second hand exposure: No alcohol intake: never substance use type: denies use current occupational status: employed Travel in the last 8 weeks?: None Have you lived/traveled outside US in past 30 days?: No Contact w/someone who lives/traveled outside US past 30 days?: No Exposure to someone with infectious disease in past 14 days?: No Do you have a fever (greater than 100.4 F or 38 C)?: No Have you tested positive for COVID-19?: No Exposed to someone with COVID-19 in past 14 days?: No Do you have a sore throat?: No Do you have a cough?: No Do you have any weakness?: No Do you have any diarrhea?: No Are you experiencing any unusual bleeding?: No Do you have any muscle aches/pain?: No Do you have any abdominal pain?: No Are you experiencing loss of taste or smell?: No Other Medical History Have you received the Flu Vaccine for this season: No Have you received the Pneumonia Vaccine: No ROS Obtained: Yes Systems reviewed as appropriate & no additional complaints except as documented Physical Exam General General appearance: alert Eye Eye exam: Present PERRL Neck Neck exam: Present full ROM Respiratory Respiratory exam: Present normal lung sounds bilaterally Cardiovascular Cardiovascular exam: Present regular rate Abdominal Exam Abdominal exam: Present soft; Absent tenderness Extremities Exam Extremities exam: Present full ROM Back Exam Back exam: Present full ROM Neurological Exam Neurological exam: Present alert and oriented X3; Absent motor sensory deficit Skin Skin exam: Present warm and dry Medical Decision Making Medical Records Screening: Per USPSTF and CDC recommendations, given the prevalence of disease in our region, it is our hospital?s policy to screen for HIV and viral Hepatitis for all patients aged 18 and over and those with ongoing risk factors. Loki Inquiry Pt receiving controlled substance: No Vital Signs: 09/07/25 14:19 09/07/25 14:20 09/07/25 14:36 Temperature 98.5 F Temperature Source Oral Pulse Rate 98 H 74 Pulse Rate [Right] 79 Respiratory Rate 18 Blood Pressure 155/93 H 134/103 H Blood Pressure [Right Arm] 155/93 H Blood Pressure Mean [Right Arm] 113 Blood Pressure Source [Right Arm] Automatic Cuff Blood Pressure Position [Right Arm] Supine 02 Sat by Pulse Oximetry 100 98 100 Oxygen Delivery Method Room Air Room Air 09/07/25 15:00 Temperature Temperature Source Pulse Rate 82 Pulse Rate [Right] Respiratory Rate Blood Pressure 142/78 H Blood Pressure [Right Arm] Blood Pressure Mean [Right Arm] Blood Pressure Source [Right Arm] Blood Pressure Position [Right Arm] 02 Sat by Pulse Oximetry 99 Oxygen Delivery Method Room Air Lab Data Lab Results 09/07/25 14:14: Urine Color Yellow, Urine Appearance Clear, Urine pH 7.5, Ur Specific [place] 1.010, Urine Protein Negative, Urine Glucose (UA) Negative, Urine Ketones Negative, Urine Blood Trace-l, Urine Nitrate Negative, Urine Bilirubin Negative, Urine Urobilinogen 0.2, Ur Leukocyte Esterase Negative, Urine RBC 50-100, Urine WBC Occasional, Ur Squamous Epith Cells 3-5, Urine Bacteria Trace 09/07/25 14:34: WBC 10.1, RBC 4.59, Hgb 14.2, Hct 40.8, MCV 88.9, MCH 30.9, MCHC 34.8, RDW 12.7, Plt Count 369, MPV 9.9, Neut % (Auto) 74.0, Lymph % (Auto) 19.7, [place] % (Auto) 5.1, Eos % (Auto) 0.5, Baso % (Auto) 0.3, Neut # (Auto) 7.5, Lymph # (Auto) 2.0, [place] # (Auto) 0.5, Eos # (Auto) 0.1, Baso # (Auto) 0.0, Sodium 144, Potassium 4.0, Chloride 105, Carbon Dioxide 25, Anion Gap 18.0 H, BUN 6 L, Creatinine 0.60, Estimated Creat Clear 86, Estimated GFR 120, Est GFR ( Amer) 145, Glucose 115 H, Calcium 9.5, Total Bilirubin 0.4, AST 29, ALT 24, Alkaline Phosphatase 46, Total Protein 8.3 H D, Albumin 4.7, Globulin 3.6 H, Albumin/Globulin Ratio 1.3, HCG, Quant < 2 09/07/25 14:34 09/07/25 14:34 Orders (Tests/Meds): ORDERS Category Date Time Status ABO/RH Type Stat BBK 09/07/25 15:30 Received Beta HCG, Quant [HCG,Quantitative] Stat Lab 09/07/25 14:34 Completed CBC w/Auto Diff [Complete Blood Count Auto Diff] Stat Lab 09/07/25 14:34 Completed CMP [Comprehensive Metabolic Panel] Stat Lab 09/07/25 14:34 Completed Urinalysis and Microscopic Stat Lab 09/07/25 14:14 Completed Medical Decision Narrative: In summary, patient is a 25-year-old with no significant PMHx who presents to the ED for complaints of vaginal that occurred 30 minutes prior to arrival. Patient denies any pain at this time. She states that last week she had 2 positive test and then today had 2 negative test. She states she is G3, P2. Last delivery was last year, no complications during her deliveries, follows with [facility]. Patient states she would like a blood test. Denies fever, chills, body aches, headache, visual disturbances, chest pain, shortness of breath, abdominal pain, flank pain, dysuria. Differential diagnosis include miscarriage, , ectopic , UTI, among others. Upon initial evaluation patient is alert, oriented and cooperative. Her abdomen is soft and nontender. Hemodynamically stable. Shared decision making used, will obtain labs. CBC unremarkable for any leukocytosis, stable H&H. CMP unremarkable for any actionable abnormalities. hCG beta < 2. Urinalysis unremarkable for leuk esterase or nitrate. Discussed with patient workup is overall unremarkable, she will need to follow-up with PCP Wednesday. We discussed increasing fluid intake, rest and return to the ED for any worsening of condition. Patient remains hemodynamically stable. Critical Care Critical Care Time Critical Care Time: No
[2025-09-07 14:36] VITALS: BP 134/103; PULSE 74; O2SAT 100
[2025-09-07 14:42] LABS: Microscopic, Urine URINE MICROSCOPIC (MICROSCOPIC)
[2025-09-07 14:43] LABS: Hematocrit 40.8 % (37.0-47.0); Hemoglobin 14.2 g/dL (12.2-16.2); Immature Granulocytes % 0.4 %; Mean Corpuscular HGB Conc 34.8 g/dL (31.8-35.4); Mean Corpuscular Hemoglobin 30.9 pg (27.0-31.2); Mean Corpuscular Volume 88.9 fl (81-99); Nucleated Red Blood Cells % 0 %; Platelet Count 369 K/mm3 (142-424); Red Blood Count 4.59 M/mm3 (4.20-5.40); Red Cell Distribution Width-SD 41.4 fL; White Blood Count 10.1 K/mm3 (4.8-10.8)
[2025-09-07 14:46] LABS: Bilirubin,Urine Negative (Negative); Color,Urine YELLOW (Yellow); Glucose,Urine (UA) Negative (Negative); Ketones,Urine Negative (Negative); Leukocyte Esterase,Urine Negative (Negative); PH,Urine 7.5 (5.0-8.5); Protein,Urine Negative (Negative); Specific Gravity, Urine 1.010 (1.005-1.030); Urobilinogen,Urine 0.2 EU/dl (0.2)
[2025-09-07 14:59] LABS: Albumin Level 4.7 g/dl (3.5-5.0); Chloride 105 mmol/L (98-107); Sodium 144 mmol/L (136-145)
[2025-09-07 15:00] VITALS: BP 142/78; PULSE 82; O2SAT 99
[2025-09-07 15:00] LABS: Potassium 4.0 mmoL/L (3.5-5.1)
[2025-09-07 15:02] LABS: Alanine Aminotransferase 24 U/L (12-78); Alkaline Phosphatase 46 U/L (38-126); Anion Gap 18.0 mEq/L (5-15); Aspartate Amino Transferase 29 U/L (14-36); Bilirubin,Total 0.4 mg/dl (0.2-1.3); Blood Urea Nitrogen 6 mg/dl (7-17); Carbon Dioxide 25 mmol/L (22.0-30.0); Creatinine Clearance Estimated 86 mL/min (50-200); Creatinine,Serum 0.60 mg/dl (0.52-1.04); Estimated Glomerular Filt Rate 120 ml/min (>60); GFR (African American) 145 ML/MIN (>60)
[2025-09-07 15:03] LABS: Albumin/Globulin Ratio 1.3 (1.1-1.8); Calcium 9.5 mg/dl (8.4-10.2); Globulin 3.6 g/dL (1.3-3.2); Glucose 115 mg/dl (74-100); Total Protein,Serum 8.3 g/dl (6.3-8.2)
[2025-09-07 15:06] LABS: Bacteria,Urine Trace /lpf; RBC,Urine 50-100 #/hpf (0-3); WBC,Urine Occasional #/hpf (0-3)
[2025-09-07 15:30] VITALS: BP 126/83; PULSE 75; O2SAT 98
[2025-09-07 15:56] VITALS: BP 126/83; PULSE 71; RESP 16; TEMP 36.9; O2SAT 99
== END 2025-09-07 16:00 | disposition home or self-care (01) ==
PROVIDERS: Nurse Practitioner; Emergency Provider Student in an Organized Health Care Education/Training Program; PCP Family Medicine
DX: N93.9 Abnormal uterine and vaginal bleeding, unspecified (principal); F17.290 Nicotine dependence, other tobacco product, uncomplicated
CPT/HCPCS: 36415; 80053; 81001; 84702; 85025; 86900; 86901; 99283; 99285